=== PATIENT | female | born 1995 | race Caucasian/White ===

== ENCOUNTER 2016-03-15 11:36 | Emergency (ER) | payer MEDICAID ==
[2016-03-15] MEDS ORDERED: DIPHENHYDRAMINE HCL 50 MG CAPSULE PO ONE (11:49)
[2016-03-15] MEDS ORDERED: IBUPROFEN 600 MG TABLET PO ONE (11:49)
[2016-03-15] MEDS ORDERED: PROCHLORPERAZINE MALEATE 10 MG TABLET PO ONE (11:49)
--- NOTE | 2016-03-15 11:49 | ER Document Report ---
ED Medical Screen (RME) - General Stated Complaint: BACK PAIN,HIP PAIN,HEADACHE Time seen by provider: 11:47 Mode of Arrival: Ambulatory Information source: Patient Notes: 20-year-old female presents to ED for migraine with hips and back pain since last night. Denies any injury or fall. Last menstrual period states she's on Depo I have greeted and performed a rapid initial assessment of this patient. A comprehensive ED assessment and evaluation of the patient, analysis of test results and completion of medical decision making process will be conducted by an additional ED providers. TRAVEL OUTSIDE OF THE [place] IN LAST 30 DAYS: No - Related Data Allergies/Adverse Reactions: No Known Allergies Allergy (Verified 10/28/15 11:19) Past Medical History Pulmonary Medical History: Reports: Hx Asthma Psychiatric Medical History: Reports: Hx Depression - post Past Surgical History: Reports: Hx Section - Immunizations Hx Diphtheria, Pertussis, Tetanus Vaccination: Yes
--- NOTE | 2016-03-15 13:56 | ER Document Report ---
ED Headache - General Chief Complaint: Back Pain Stated Complaint: BACK PAIN,HIP PAIN,HEADACHE Mode of Arrival: Ambulatory Information source: Patient TRAVEL OUTSIDE OF THE [place] IN LAST 30 DAYS: No - HPI Patient complains to provider of: Headache, Other - LOW BACK PAIN Patient reports: Occasional migraines Onset: This morning Onset was: Abrupt. denies: Thunderclap Timing: Still present Quality of pain: Dull - MOSTLY, Sharp - WITH MOVEMENT OF LOWER EXTREMITIES Severity: Moderate Context: denies: CO exposure, Head injury, Insect bite, Meningitis exposure, Tick bite Associated symptoms: Photophobia, Trouble walking - DUE TO PAIN IN LOW BACK. denies: Chills, Dizzy, Fever, Motor/sensory loss to arm, Motor/sensory loss to leg, Nausea/vomiting, Neck pain Exacerbated by: Movement Similar symptoms previously: Yes Recently seen / treated by doctor: No - Related Data Allergies/Adverse Reactions: No Known Allergies Allergy (Verified 03/15/16 11:53) Past Medical History - General Information source: Patient - Social History Smoking Status: Never Smoker Chew tobacco use (# tins/day): No Frequency of alcohol use: None Drug Abuse: None Family History: Reviewed & Not Pertinent Patient has suicidal ideation: No Patient has homicidal ideation: No Pulmonary Medical History: Reports: Hx Asthma Neurological Medical History: Reports: Hx Migraine Renal/ Medical History: Denies: Hx Peritoneal Dialysis Psychiatric Medical History: Reports: Hx Depression - post Past Surgical History: Reports: Hx Section - Immunizations Hx Diphtheria, Pertussis, Tetanus Vaccination: Yes Review of Systems - Review of Systems Constitutional: No symptoms reported EENT: No symptoms reported Cardiovascular: No symptoms reported Respiratory: No symptoms reported Gastrointestinal: No symptoms reported Genitourinary: No symptoms reported. denies: Dysuria, Frequency, Hematuria, Urgency Female Genitourinary: No symptoms reported Musculoskeletal: See HPI Skin: See HPI Neurological/Psychological: Headaches Physical Exam - Vital signs Vitals: Temp Pulse Resp BP Pulse Ox 98.2 F 112 H 20 119/74 100 03/15/16 11:44 03/15/16 11:44 03/15/16 11:44 03/15/16 11:44 03/15/16 11:44 Interpretation: Tachycardic. No: Tachypneic, Febrile - General General appearance: Appears well, Alert In distress: None - HEENT Head: Normocephalic Eyes: Normal Conjunctiva: Normal Ears: Normal Nasal: Normal Mouth/Lips: Normal Mucous membranes: Dry - MILDLY Pharynx: Normal Neck: Normal, Supple - Respiratory Respiratory status: No respiratory distress Breath sounds: Normal - Cardiovascular Rhythm: Regular Heart sounds: Normal auscultation Murmur: No - Abdominal Inspection: Normal Distension: No distension - Back Back: Tender - PARASPINOUS LUMBAR, BILAT. - Extremities General upper extremity: Normal inspection General lower extremity: Normal inspection - Neurological Neuro grossly intact: Yes Cognition: Normal Orientation: AAOx4 - Psychological Associated symptoms: Normal affect, Normal mood - Skin Skin Temperature: Warm Skin Moisture: Dry Skin Color: Normal Skin Turgor: Elastic Course - Vital Signs Vital signs: Temp Pulse Resp BP Pulse Ox 98.2 F 112 H 20 119/74 100 03/15/16 11:44 03/15/16 11:44 03/15/16 11:44 03/15/16 11:44 03/15/16 11:44 Discharge - Discharge Clinical Impression: Low back pain Qualifiers: Chronicity: acute Back pain laterality: bilateral Sciatica presence: unspecified whether sciatica present Qualified Code(s): M54.5 - Low back pain Migraine headache Qualifiers: Migraine type: without aura Status migrainosus presence: without status migrainosus Intractability: not intractable Qualified Code(s): G43.009 - Migraine without aura, not intractable, without status migrainosus Condition: Stable Disposition: HOME, SELF-CARE Instructions: Low Back Pain ([facility]), Oral Narcotic Medication ([facility]), Migraine Headache ([facility]), Antinausea Medication ([facility]) Additional Instructions: REST, DRINK PLENTY OF FLUIDS. MEDS DIRECTED. AVOID PAINFUL ACTIVITY. FOLLOW UP WITH YOUR PRIMARY CARE PROVIDER OR RETURN TO E.R. IF YOU GET WORSE, ANY TIME. Prescriptions: Hydrocodone/Acetaminophen [Phillips 5-325 mg Tablet] 1 tab PO Q4HP PRN #14 tablet PRN Reason: For Pain Ondansetron [Zofran Odt 4 mg Tablet] 1 - 2 tab PO Q4H #10 tab.rapdis
[2016-03-15] MEDS ORDERED: ONDANSETRON 4 MG TAB.RAPDIS PO ONE (14:42)
[2016-03-15] MEDS ORDERED: HYDROCODONE/ACETAMINOPHEN 5-325 MG TABLET PO ONE (14:42)
[2016-03-15 15:12] VITALS: BP 111/60
== END 2016-03-15 15:10 | disposition home or self-care (01) ==
LOC: ER 11:36
DX: M54.5 Low back pain (principal); G43.909 Migraine, unspecified, not intractable, without status migrainosus; H53.149 Visual discomfort, unspecified; J45.909 Unspecified asthma, uncomplicated; R00.0 Tachycardia, unspecified
CPT/HCPCS: 99283; 72110; J3490 ×2; S0119; S0183

== ENCOUNTER 2016-03-22 20:52 | Emergency (ER) | payer MEDICAID ==
[2016-03-22] MEDS ORDERED: ACETAMINOPHEN 325 MG TABLET PO ONE (21:37)
--- NOTE | 2016-03-22 21:37 | ER Document Report ---
ED Medical Screen (RME) - General Stated Complaint: EAR PAIN Notes: Patient is a 19-year-old female presents with left ear pain for about one week. Denies any fevers, diaphoresis, chills. admits to dizzyness (+) headache, sinus pressure denies n/v, nasal drainage, cough nonproductive, sore throat I have greeted and performed a rapid initial assessment of this patient. A comprehensive ED assessment and evaluation of the patient, analysis of test results and completion of the medical decision making process will be conducted by additional ED providers. TRAVEL OUTSIDE OF THE [place] IN LAST 30 DAYS: No - Related Data Allergies/Adverse Reactions: No Known Allergies Allergy (Verified 03/15/16 11:53) Past Medical History Pulmonary Medical History: Reports: Hx Asthma Neurological Medical History: Reports: Hx Migraine Renal/ Medical History: Denies: Hx Peritoneal Dialysis Psychiatric Medical History: Reports: Hx Depression - post Past Surgical History: Reports: Hx Section - Immunizations Hx Diphtheria, Pertussis, Tetanus Vaccination: Yes Physical Exam - Vital signs Vitals: Temp Pulse Resp BP Pulse Ox 97.4 F 93 16 122/70 100 03/22/16 20:59 03/22/16 20:59 03/22/16 20:59 03/22/16 20:59 03/22/16 20:59 Course - Vital Signs Vital signs: Temp Pulse Resp BP Pulse Ox 97.4 F 93 16 122/70 100 03/22/16 20:59 03/22/16 20:59 03/22/16 20:59 03/22/16 20:59 03/22/16 20:59
[2016-03-22] MEDS ORDERED: ACETAMINOPHEN 325 MG TABLET ONE (21:39)
[2016-03-22] MEDS ORDERED: LIDOCAINE 2% URO-JET 5 ML KIT MM ONE (23:59)
--- NOTE | 2016-03-23 00:06 | ER Document Report ---
ED General - General Chief Complaint: Ear Pain Stated Complaint: EAR PAIN TRAVEL OUTSIDE OF THE [place] IN LAST 30 DAYS: No - HPI Patient complains to provider of: left ear pain Notes: Patient coming in for evaluation of left ear pain. States pain ongoing for the last week. Patient denies any fevers chills no swelling. Denies any drainage from the left ear. Patient states he has been cut cotton balls any ear for the last week. - Related Data Allergies/Adverse Reactions: amoxicillin Allergy (Verified 03/22/16 21:37) Past Medical History - Social History Smoking Status: Unknown if Ever Smoked Chew tobacco use (# tins/day): No Frequency of alcohol use: None Drug Abuse: None Family History: Reviewed & Not Pertinent Patient has suicidal ideation: No Patient has homicidal ideation: No Pulmonary Medical History: Reports: Hx Asthma Neurological Medical History: Reports: Hx Migraine Renal/ Medical History: Denies: Hx Peritoneal Dialysis Psychiatric Medical History: Reports: Hx Depression - post Past Surgical History: Reports: Hx Section - Immunizations Hx Diphtheria, Pertussis, Tetanus Vaccination: Yes Review of Systems - Review of Systems Constitutional: No symptoms reported EENT: Ear pain Cardiovascular: No symptoms reported Respiratory: No symptoms reported Gastrointestinal: No symptoms reported Genitourinary: No symptoms reported Female Genitourinary: No symptoms reported Musculoskeletal: No symptoms reported Skin: No symptoms reported Hematologic/Lymphatic: No symptoms reported Neurological/Psychological: No symptoms reported Physical Exam - Vital signs Vitals: Temp Pulse Resp BP Pulse Ox 97.4 F 93 16 122/70 100 03/22/16 20:59 03/22/16 20:59 03/22/16 20:59 03/22/16 20:59 03/22/16 20:59 Interpretation: Normal - General General appearance: Appears well, Alert - HEENT Head: Normocephalic, Atraumatic Eyes: Normal Conjunctiva: Normal Cornea: Normal Pupils: PERRL Ears: Normal External canal: Normal Tympanic membrane: Other - Cerumen impaction left ear. Right ear normal - Respiratory Respiratory status: No respiratory distress Chest status: Nontender Breath sounds: Normal Chest palpation: Normal - Cardiovascular Rhythm: Regular Heart sounds: Normal auscultation Murmur: No - Abdominal Inspection: Normal Distension: No distension Bowel sounds: Normal Tenderness: Nontender Organomegaly: No organomegaly - Back Back: Normal, Nontender - Extremities General upper extremity: Normal inspection, Nontender, Normal color, Normal ROM , Normal temperature General lower extremity: Normal inspection, Nontender, Normal color, Normal ROM , Normal temperature, Normal weight bearing. No: Garcia's sign - Neurological Neuro grossly intact: Yes Cognition: Normal Orientation: AAOx4 Brunilda Coma Scale Eye Opening: Spontaneous [place] Coma Scale Verbal: Oriented [place] Coma Scale Motor: Obeys Commands Brunilda Coma Scale Total: 15 Speech: Normal Motor strength normal: LUE, RUE, LLE, RLE Sensory: Normal - Psychological Associated symptoms: Normal affect, Normal mood - Skin Skin Temperature: Warm Skin Moisture: Dry Skin Color: Normal Course - Re-evaluation Re-evalutation: 03/23/16 00:06 Patient will be treated with your Cele hernandez Tylenol Motrin for pain the proximal to help remove the earwax. - Vital Signs Vital signs: Temp Pulse Resp BP Pulse Ox 97.4 F 93 16 122/70 100 03/22/16 20:59 03/22/16 20:59 03/22/16 20:59 03/22/16 20:59 03/22/16 20:59 Discharge - Discharge Clinical Impression: Cerumen impaction Qualifiers: Laterality: left Qualified Code(s): H61.22 - Impacted cerumen, left ear Condition: Good Disposition: HOME, SELF-CARE Instructions: Cerumen Impaction ([facility]) Additional Instructions: You may place a small amount of Urojet in your here for pain control. Also take Tylenol and Motrin for pain control. I will prescribe you Debrox eardrops that will aid in resolving the wax. You may also try to irrigate throughout after 48 hours of using the drops Prescriptions: Carbamide Peroxide [Debrox 6.5 % Otic Drops 15 ml] 10 drop OS BID #1 bottle Referrals: VALENTIN JETER MD [Primary Care Provider] - Follow up in 3-5 days
[2016-03-23 00:46] VITALS: BP 109/68
== END 2016-03-23 00:45 | disposition home or self-care (01) ==
LOC: ER 20:52
DX: H61.22 Impacted cerumen, left ear (principal); H92.02 Otalgia, left ear
CPT/HCPCS: 99282; J3490

== ENCOUNTER 2016-06-10 23:03 | Emergency (ER) | payer MEDICAID ==
[2016-06-10 23:15] VITALS: BP 135/84
--- NOTE | 2016-06-11 01:04 | ER Document Report ---
HPI - HPI Patient complains to provider of: right wrist and hand pain Onset: Just prior to arrival Onset/Duration: Sudden Quality of pain: Dull, Throbbing Severity: Moderate Pain Level: 3 Context: Patient states she punched the wall several times today Associated Symptoms: None Exacerbated by: Movement Relieved by: Remaining still Similar symptoms previously: No Recently seen / treated by doctor: No - ROS ROS below otherwise negative: Yes Systems Reviewed and Negative: Yes All other systems reviewed and negative - DERM Skin Color: Normal, [place] Skin Problems: None Past Medical History - General Information source: Patient - Social History Smoking Status: Never Smoker Cigarette use (# per day): No Chew tobacco use (# tins/day): No Frequency of alcohol use: None Drug Abuse: None Lives with: Spouse/Significant other Family History: Reviewed & Not Pertinent Patient has suicidal ideation: No Patient has homicidal ideation: No - Medical History Medical History: Negative Pulmonary Medical History: Reports: Hx Asthma Neurological Medical History: Reports: Hx Migraine Renal/ Medical History: Denies: Hx Peritoneal Dialysis Psychiatric Medical History: Reports: Hx Depression - post Past Surgical History: Reports: Hx Section - Immunizations Hx Diphtheria, Pertussis, Tetanus Vaccination: Yes Vertical Provider Document - CONSTITUTIONAL Agree With Documented VS: Yes Exam Limitations: No Limitations General Appearance: WD/WN - INFECTION CONTROL TRAVEL OUTSIDE OF THE [place] IN LAST 30 DAYS: No - HEENT HEENT: Atraumatic - NECK Neck: Normal Inspection - RESPIRATORY O2 Sat by Pulse Oximetry: 100 - MUSCULOSKELETAL/EXTREMETIES Notes: Right hand: Patient has tenderness over the MCP joints #2, through 5. The patient does have tenderness over the distal radius and ulnar. Still Refill is good. Distal sensation is good Course - Vital Signs Vital signs: Temp Pulse Resp BP Pulse Ox 98.6 F 92 17 135/84 H 100 06/10/16 23:13 06/10/16 23:13 06/10/16 23:13 06/10/16 23:13 06/10/16 23:13 - Diagnostic Test Radiology reviewed: Image reviewed, Reports reviewed - Excise of the wrist and hand show no obvious fractures. Patient placed in splint Procedures - Immobilization Right Hand Time completed: 02:00 Pre-Proc Neuro Vasc Exam: Normal Immobilizer type: Other - Volar splint Performed by: PCT Post-Proc Neuro Vasc Exam: Normal Alignment checked and good: Yes Discharge - Discharge Clinical Impression: right hand contusion, right wrist contusion Condition: Stable Disposition: HOME, SELF-CARE Additional Instructions: While the x-rays do not show an obvious fracture, hairline fractures are sometimes mask. Given the tenderness in the wrist itself and over the metacarpal phalangeal joints, the hand and wrist was placed in a half-cast. This is a splint to allow the joint and bones to rest and heal. Take ibuprofen as needed for pain Elevate wrist, ice several times a day. Follow-up with the bone doctor in 2 weeks: I left the number for Dr. Verduzco. Keep the hand in the splint for the next week. Take it the splint off after week and began range of motion of the hand and wrist. Take Percocet if needed: The pain medicine you're taking prescribed as a narcotic. There are several important things you should know about this medicine: 1. This medicine contains Tylenol: It is important that you do not take Tylenol (or acetaminophen) while on this medicine. Tylenol is metabolized by the liver and taking too much Tylenol (acetaminophen) can lay to liver damage and even liver failure. 2. Taking narcotics for too long can lead to physical and mental dependence. Take this medicine only if really needed and in the lowest quantity to achieve pain relief. 3. Do not drink alcohol while on this medicine. Alcohol interacts with narcotics and the combination can be dangerous. 4. Do not drive or operate machinery while on this medicine. 5. Narcotics do cause constipation, so drink plenty of fluids and daily stool softeners. Prescriptions: Oxycodone HCl/Acetaminophen [Percocet 5-325 mg Tablet] 1 tab PO ASDIR PRN #15 tab PRN Reason: Referrals: MICHEAL VERDUZCO MD [ACTIVE STAFF] - Follow up tomorrow (Call for appointment in 2 weeks)
[2016-06-11] MEDS ORDERED: HYDROCODONE/ACETAMINOPHEN 5-325 MG 6 TAB/DSPK PO PRN (02:25)
== END 2016-06-11 02:25 | disposition home or self-care (01) ==
LOC: ER 23:03
PROC: 2W3CX1Z Immobilization of Right Lower Arm using Splint (ICD-10-PCS; principal; 2016-06-10)
DX: S60.221A Contusion of right hand, initial encounter (principal); S60.211A Contusion of right wrist, initial encounter; M25.531 Pain in right wrist; M79.641 Pain in right hand; W22.01XA Walked into wall, initial encounter
CPT/HCPCS: 99283

== ENCOUNTER 2016-12-10 17:23 | Emergency (ER) | payer MEDICAID ==
[2016-12-10] MEDS ORDERED: DIAZEPAM 2 MG TABLET PO ONE (18:35)
[2016-12-10] MEDS ORDERED: KETOROLAC TROMETHAMINE INJ/PF 30 MG/1 ML SDV IM ONE (18:35)
--- NOTE | 2016-12-10 18:38 | ER Document Report ---
HPI - HPI Pain Level: 3 Past Medical History - Social History Smoking Status: Current Every Day Smoker Family History: Reviewed & Not Pertinent Pulmonary Medical History: Reports: Hx Asthma Neurological Medical History: Reports: Hx Migraine Renal/ Medical History: Denies: Hx Peritoneal Dialysis Psychiatric Medical History: Reports: Hx Depression - post Past Surgical History: Reports: Hx Section - Immunizations Hx Diphtheria, Pertussis, Tetanus Vaccination: Yes Vertical Provider Document - INFECTION CONTROL TRAVEL OUTSIDE OF THE [place] IN LAST 30 DAYS: No - RESPIRATORY O2 Sat by Pulse Oximetry: 100 Course - Re-evaluation Re-evalutation: 12/10/16 18:36 The patient presents with low back pain without signs of spinal cord compression , cauda equina syndrome, infection, aneurysm, or other serious etiology. Her symptoms are consistent with a muscle strain given her line of work and physical exam findings. the patient is neurologically intact. Given the extremely low risk of these diagnoses further testing and evaluation for these possibilities does not appear to be indicated at this time. The patient has been instructed to return if the symptoms worsen or change in any way. - Vital Signs Vital signs: Temp Pulse Resp BP Pulse Ox 98.4 F 69 121/71 100 12/10/16 17:36 12/10/16 17:36 12/10/16 17:36 12/10/16 17:36 Discharge - Discharge Clinical Impression: Back pain Qualifiers: Back pain location: low back pain Chronicity: chronic Back pain laterality: bilateral Sciatica presence: with sciatica Sciatica laterality: bilateral sciatica Qualified Code(s): M54.42 - Lumbago with sciatica, left side Condition: Good Disposition: HOME, SELF-CARE Additional Instructions: LOW BACK PAIN: Three out of every four people will have an episode of disabling back pain during their lifetime. Most commonly the pain is due to straining of the muscles and ligaments in the low back. Usual treatment includes: (1) Rest on a firm surface. Avoid lying on your stomach. (2) Ice pack the painful area. After a few days, gentle heat may be used intermittently to relax the area, or ice packs can be continued. (3) Medication may be needed -- muscle relaxers and antiinflammatory medicines are commonly used. (4) As the back improves, exercises are prescribed to strengthen the back and abdominal muscles. Your doctor will advise you on the proper care for your back at each stage in your recovery. You may be better in a few days -- or healing may take several weeks. If new symptoms of a "herniated disc" (radiation of pain, numbness, or tingling down the back of the leg or weakness in the leg) occur, you should be re-examined. Further testing may be necessary. PAIN MEDICATION INJECTION: You have received an injection of a pain medication. You should experience significant pain relief within 45 minutes. If this injection was a narcotic -- it will impair your judgement, slow your reaction time and make you sleepy (as well as relieve your pain). Narcotics also can cause nausea. You should not drive, work with machinery, or perform any task requiring mental alertness until all effects of the medication are gone -- six to eight hours. Do not take any alcohol, or sedatives, and do not take any other medication without checking with your physician. ICE PACKS: Apply ice packs frequently against the painful area. Many different schedules are recommended, such as "20 minutes on, 20 minutes off" or "one hour ice, two hours rest." If you need to work, you may need to go longer between ice treatments. You should plan to have the area ice packed AT LEAST one fourth of the time. The ice should be applied over the wrap, tape, or splint, or over a layer of cloth -- not directly against the skin. Some ice bags have a built-in cloth and can be put directly on the skin. WARM PACKS: After approximately two days, apply gentle heat (such as a heating pad or hot water bottle) for about 20 to 30 minutes about every two hours -- at least four times daily. Warmth and elevation will help you make a more rapid recovery , and will ease the pain considerably. Do not use HOT heat, and never apply heat for longer than 30 minutes. The continuous heat can invisibly damage skin and muscles -- even when no burn is seen on the surface. Damaged muscles can make you MORE sore. FOLLOW-UP CARE: If you have been referred to a physician for follow-up care, call the physician s office for an appointment as you were instructed or within the next two days. If you experience worsening or a significant change in your symptoms, notify the physician immediately or return to the Emergency Department at any time for re-evaluation. Prescriptions: Cyclobenzaprine HCl [Flexeril 10 mg Tablet] 10 mg PO TIDP PRN #15 tab PRN Reason: Naproxen 500 mg PO BID #20 tablet Forms: Special Work Note, Return to Work Referrals: [facility] [Provider Group] - Follow up in 1 week
[2016-12-10 19:23] VITALS: BP 134/71
== END 2016-12-10 19:23 | disposition home or self-care (01) ==
LOC: ER 17:23
DX: G89.29 Other chronic pain (principal); M54.41 Lumbago with sciatica, right side; M54.42 Lumbago with sciatica, left side; J45.909 Unspecified asthma, uncomplicated; F17.200 Nicotine dependence, unspecified, uncomplicated
CPT/HCPCS: 99283; 96372; J3490; J1885

== ENCOUNTER 2017-02-12 21:58 | Emergency (ER) | payer MEDICAID ==
--- NOTE | 2017-02-12 22:38 | ER Document Report ---
ED General - General Chief Complaint: Abdominal Pain Stated Complaint: ABDOMINAL PAIN Time Seen by Provider: 02/12/17 22:30 Notes: Patient is a 19-year-old female presents with complaint of lower pelvic abdominal pain rating to her back and cramping. Last menstrual period was January 08. She is sexually active January 26. She did take a test yesterday which was positive. No vaginal bleeding. No abnormal discharge. No fevers. No vomiting. No other complaints at this time. TRAVEL OUTSIDE OF THE [place] IN LAST 30 DAYS: No - Related Data Allergies/Adverse Reactions: No Known Allergies Allergy (Unverified 12/10/16 19:06) Past Medical History - Social History Smoking Status: Current Some Day Smoker Frequency of alcohol use: None Drug Abuse: None Family History: Reviewed & Not Pertinent Patient has suicidal ideation: No Patient has homicidal ideation: No Pulmonary Medical History: Reports: Hx Asthma Neurological Medical History: Reports: Hx Migraine Renal/ Medical History: Denies: Hx Peritoneal Dialysis Psychiatric Medical History: Reports: Hx Depression - post Past Surgical History: Reports: Hx Section - Immunizations Hx Diphtheria, Pertussis, Tetanus Vaccination: Yes Review of Systems - Review of Systems Notes: My Normal Review Basic REVIEW OF SYSTEMS: CONSTITUTIONAL : Denies fever, chills, or sweats. Denies recent illness. EENT: Denies eye, ear, throat, or mouth pain or symptoms. Denies nasal or sinus congestion. RESPIRATORY: Denies cough, cold, or chest congestion. Denies shortness of breath, difficulty breathing, or wheezing. GASTROINTESTINAL: Has lower abdominal pain. Denies nausea, vomiting, or diarrhea. GENITOURINARY: Denies difficulty urinating, painful urination, burning, frequency, or blood in urine. FEMALE GENITOURINARY: No abnormal vaginal discharge or bleeding. Currently . MUSCULOSKELETAL: Denies neck or back pain or joint pain or swelling. SKIN: Denies rash or skin lesions. NEUROLOGICAL: Denies altered mental status or loss of consciousness. Denies headache. Denies weakness or paralysis or loss of use of either side. Denies problems with gait or speech. Denies sensory or motor loss. ALL OTHER SYSTEMS REVIEWED AND NEGATIVE. Physical Exam - Vital signs Vitals: Temp Pulse Resp BP Pulse Ox 98.9 F 102 H 21 H 137/83 H 100 02/12/17 22:21 02/12/17 22:21 02/12/17 22:21 02/12/17 22:21 02/12/17 22:21 - Notes Notes: General Appearance: Well nourished, alert, cooperative, no acute distress, mild to moderateobvious discomfort. Vitals: reviewed, See vital signs table. Eyes: PERRL, EOMI, Conjuctiva clear Mouth: No decreasd moisture Lungs: No wheezing, No rales, No rhonci, No accessory muscle use, good air exchange bilaterally. Heart: Normal rate, Regular rythm, No murmur, no rub Abdomen: Normal BS, soft, No rigidity, moderate abdominal tenderness to palpation mainly over this lower abdomen., No guarding, no rebound, Pelvic: Normal external genitalia. No abnormal discharge in vaginal vault. No blood. No obvious pain during exam. Extremities: strength 5/5 in all extremities, good pulses in all extremities, no swelling or tenderness in the extremities, no edema. Skin: warm, dry, appropriate color, no rash Neuro: speech clear, oriented x 3, normal affect, responds appropriately to questions. Course - Re-evaluation Re-evalutation: 02/13/17 01:07 Patient's ultrasound does not show an IUP but does not show an ectopic either. No free fluid. Her hCG level is only in the 300s and therefore it is not surprising that we do not see anything on ultrasound. She has no bleeding on exam. She her abdomen is soft and tender to palpation. Tylenol did help her pain. I did inform her that we cannot yet see intrauterine but we cannot fully rule out ectopic until we are able to see on ultrasound. Informed her that she should return to ER or her dynamics ax developer approximately 5 days for reevaluation. Informed her of the UTI will place on Macrobid. I encouraged her return to ER immediately if she has fevers, worsening abdominal pain, vomiting, vaginal bleeding, or she feels unwell. Patient agrees with plan and will be discharged home. Dictation of this chart was performed using voice recognition software; therefore, there may be some unintended grammatical errors. - Vital Signs Vital signs: Temp Pulse Resp BP Pulse Ox 98.9 F 102 H 21 H 137/83 H 100 02/12/17 22:21 02/12/17 22:21 02/12/17 22:21 02/12/17 22:21 02/12/17 22:21 - Laboratory Laboratory results interpreted by me: 02/12/17 02/12/17 22:43 22:54 Beta HCG, Quant 375.69 H Urine Ketones TRACE H Urine Urobilinogen 2.0 H Ur Leukocyte Esterase MODERATE H Discharge - Discharge Clinical Impression: Abdominal pain Qualifiers: Abdominal location: lower abdomen, unspecified Qualified Code(s): R10.30 - Lower abdominal pain, unspecified Qualifiers: Weeks of gestation: less than 8 weeks Qualified Code(s): Z3A.01 - Less than 8 weeks gestation of UTI (urinary tract infection) Qualifiers: Urinary tract infection type: acute cystitis Hematuria presence: without hematuria Qualified Code(s): N30.00 - Acute cystitis without hematuria Condition: Good Disposition: HOME, SELF-CARE Additional Instructions: Your appears to be too early to see it on ultrasound. If you are still having pain after 5 days you need to return to the ER for reevaluation and for repeat blood work to make sure your hormone is rising appropriately. As discussed with you it is too early to tell if you have an intrauterine or an ectopic . At this time we do not expect an ectopic , but you still need to have a low threshold to return to the ER immediately if you have severe pain, vomiting, vaginal bleeding, fevers, or feel unwell. Please take Tylenol for pain. please start taking vitamins and make an appointment to see the OB physician within a week. Your urinalysis shows evidence of a UTI. We have placed you on an antibiotic for this. Prescriptions: Nitrofurantoin/Nitrofuran Mac [Macrobid 100 mg Capsule] 1 tab PO BID #14 capsule Referrals: JESSICA NORMAN MD [ACTIVE STAFF] - Follow up in 3-5 days
[2017-02-12 23:08] LABS: APPEARANCE,URINE SLIGHTLY-CLOUDY; BILIRUBIN,URINE NEGATIVE (NEGATIVE); COLOR,URINE YELLOW; GLUCOSE, URINE NEGATIVE (NEGATIVE); KETONES,URINE TRACE mg/dL (NEGATIVE); LEUKOCYTE ESTERASE,URINE MODERATE (NEGATIVE); NITRITE,URINE NEGATIVE (NEGATIVE); PROTEIN,URINE NEGATIVE (NEGATIVE); URINE SPECIFIC GRAVITY 1.027
--- NOTE | 2017-02-13 00:06 | RADIOLOGY REPORT (SQ) ---
EXAM DESCRIPTION: U/S OB TRANSVAG W/DOPPLER COMPLETED DATE/TIME: 02/12/2017 11:49 pm REASON FOR STUDY: pelvic pain in early COMPARISON: None. TECHNIQUE: Dynamic and static grayscale images acquired of the pelvis via transvaginal approach and recorded on PACS. Additional selected color Doppler and spectral images recorded. LIMITATIONS: None. FINDINGS: UTERUS: Contour normal. No mass. ENDOMETRIAL STRIPE: No intrauterine identified at this time. No focal or generalized thicke augustus. No masses. CERVIX: No nabothian cysts. RIGHT OVARY: No abnormal masses. RIGHT OVARY DOPPLER: Normal arterial vascular flow without evidence for torsion. LEFT OVARY: 2.1 cm involuting left ovarian luteal cyst. LEFT OVARY DOPPLER: Normal arterial vascular flow without evidence for torsion. FREE FLUID: None noted. OTHER: No other significant finding. MEASUREMENTS: UTERUS: 8 x 5.4 x 4 cm ENDOMETRIAL STRIPE: 16 mm RIGHT OVARY: 2.9 x 1.6 x 1.4 cm LEFT OVARY: 3.2 x 3.2 x 1.8 cm IMPRESSION: No intrauterine identified at this time. 2.1 cm involuting left ovarian lutea l cyst. No free fluid. TECHNICAL DOCUMENTATION: JOB ID: [id number] [place]-72 2010 [employer]- All Rights Reserved
[2017-02-13 00:38] LABS: T.VAGINALIS (WET MOUNT) NO TRICHOMONAS SEEN; WBCS (WET MOUNT) RARE WBCS SEEN; YEAST (WET MOUNT) NO YEAST SEEN
[2017-02-13] MEDS ORDERED: NITROFURANTOIN MONOHYD/M-CRYST 100 MG CAPSULE PO ONE (01:02)
[2017-02-13 01:46] VITALS: BP 133/80
[2017-02-13 01:55] LABS: CHLAM PCR NOT DETECTED (NOT DETECT); GON PCR NOT DETECTED (NOT DETECT)
== END 2017-02-13 01:17 | disposition home or self-care (01) ==
LOC: ER 21:58
DX: O23.11 Infections of bladder in pregnancy, first trimester (principal); O26.891 Other specified pregnancy related conditions, first trimester; R10.2 Pelvic and perineal pain; O99.511 Diseases of the respiratory system complicating pregnancy, first trimester; J45.909 Unspecified asthma, uncomplicated; O99.331 Smoking (tobacco) complicating pregnancy, first trimester; Z3A.01 Less than 8 weeks gestation of pregnancy
CPT/HCPCS: 99284; 36415; 87210; 84702; 81001; 87491; 87591; 76817; 93976; J3490; J8499

== ENCOUNTER 2017-02-21 22:12 | Emergency (ER) | payer MEDICAID ==
--- NOTE | 2017-02-21 22:36 | ER Document Report ---
ED Medical Screen (RME) - General Chief Complaint: Abdominal Cramping Stated Complaint: FALL/STOMACH PAIN Time Seen by Provider: 02/21/17 22:33 Mode of Arrival: Ambulatory Information source: Patient Notes: 21-year-old 3 P1 female fell on black ice today at 330 falling on her stomach. She is 6 weeks and she is having upper and lower abdominal pain since it occurred. No vaginal bleeding, but she wants to make sure everything is okay with this . TRAVEL OUTSIDE OF THE [place] IN LAST 30 DAYS: No - Related Data Allergies/Adverse Reactions: No Known Allergies Allergy (Verified 02/21/17 22:22) Past Medical History Pulmonary Medical History: Reports: Hx Asthma Neurological Medical History: Reports: Hx Migraine Renal/ Medical History: Denies: Hx Peritoneal Dialysis Psychiatric Medical History: Reports: Hx Depression - post Past Surgical History: Reports: Hx Section - Immunizations Hx Diphtheria, Pertussis, Tetanus Vaccination: Yes History of Influenza Vaccine for 11/2016 - 04/2017 Season: No Physical Exam - Vital signs Vitals: Temp Pulse Resp BP Pulse Ox 98.6 F 92 18 140/84 H 99 02/21/17 22:29 02/21/17 22:29 02/21/17 22:29 02/21/17 22:29 02/21/17 22:29 Course - Vital Signs Vital signs: Temp Pulse Resp BP Pulse Ox 98.6 F 92 18 140/84 H 99 02/21/17 22:29 02/21/17 22:29 02/21/17 22:29 02/21/17 22:29 02/21/17 22:29
[2017-02-21 23:15] LABS: APPEARANCE,URINE SLIGHTLY HAZY; BILIRUBIN,URINE NEGATIVE (NEGATIVE); COLOR,URINE STRAW; GLUCOSE, URINE NEGATIVE (NEGATIVE); KETONES,URINE TRACE mg/dL (NEGATIVE); LEUKOCYTE ESTERASE,URINE LARGE (NEGATIVE); NITRITE,URINE NEGATIVE (NEGATIVE); PROTEIN,URINE NEGATIVE (NEGATIVE); URINE SPECIFIC GRAVITY 1.006; UROBILINOGEN,URINE NEGATIVE mg/dL (<2.0)
--- NOTE | 2017-02-22 00:23 | ER Document Report ---
ED General - General Chief Complaint: Abdominal Cramping Stated Complaint: FALL/STOMACH PAIN Time Seen by Provider: 02/21/17 22:33 Mode of Arrival: Ambulatory Notes: Patient is a 21 year old female who presents after she slipped on ice and fell onto her abdomen. She is currently 6 weeks by LMP. She notes that since that time she has had a small amount of abdominal cramping and wants to make sure that the baby is fine. She describes the pain in the lower abdomen as being a mild, cramping, intermittent pain. Nothing improves or worsens that pain. She denies any trauma to any other area of her body or any additional concerns today. TRAVEL OUTSIDE OF THE [place] IN LAST 30 DAYS: No - Related Data Allergies/Adverse Reactions: No Known Allergies Allergy (Verified 02/21/17 22:22) Past Medical History - General Information source: Patient - Social History Smoking Status: Former Smoker Frequency of alcohol use: None Drug Abuse: None Lives with: Spouse/Significant other Family History: Reviewed & Not Pertinent Patient has suicidal ideation: No Patient has homicidal ideation: No Pulmonary Medical History: Reports: Hx Asthma Neurological Medical History: Reports: Hx Migraine Renal/ Medical History: Denies: Hx Peritoneal Dialysis Psychiatric Medical History: Reports: Hx Depression - post Past Surgical History: Reports: Hx Section, Hx Oral Surgery - [place] teeth - Immunizations Hx Diphtheria, Pertussis, Tetanus Vaccination: Yes Review of Systems - Review of Systems Notes: Constitutional: Negative for fever. HENT: Negative for sore throat. Eyes: Negative for visual changes. Cardiovascular: Negative for chest pain. Respiratory: Negative for shortness of breath. Gastrointestinal: Positive for abdominal pain Genitourinary: Negative for dysuria. Musculoskeletal: Negative for back pain. Skin: Negative for rash. Neurological: Negative for headaches, weakness or numbness. 10 point ROS negative except as marked above and in HPI. Physical Exam - Vital signs Vitals: Temp Pulse Resp BP Pulse Ox 98.6 F 92 18 140/84 H 99 02/21/17 22:29 02/21/17 22:29 02/21/17 22:29 02/21/17 22:29 02/21/17 22:29 Interpretation: Normal Notes: PHYSICAL EXAMINATION: GENERAL: Well-appearing, well-nourished and in no acute distress. HEAD: Atraumatic, normocephalic. EYES: Pupils equal round and reactive to light, extraocular movements intact, sclera anicteric, conjunctiva are normal. ENT: nares patent, oropharynx clear without exudates. Moist mucous membranes. NECK: Normal range of motion, supple without lymphadenopathy LUNGS: Breath sounds clear to auscultation bilaterally and equal. No wheezes rales or rhonchi. HEART: Regular rate and rhythm without murmurs ABDOMEN: Soft, nontender, normoactive bowel sounds. No guarding, no rebound. No masses appreciated. EXTREMITIES: Normal range of motion, no pitting or edema. No cyanosis. NEUROLOGICAL: No focal neurological deficits. Moves all extremities spontaneously and on command. PSYCH: Normal mood, normal affect. SKIN: Warm, Dry, normal turgor, no rashes or lesions noted. Course - Re-evaluation Re-evalutation: 02/22/17 00:21 Patient presents with some mild lower abdominal cramping after she slipped on the ice and fell her abdomen while currently 6 weeks . No vaginal bleeding or discharge. No bruising on abdominal examination. No tenderness to palpation. Patient is very early in her and I have informed her that we will likely still be unable to see any significant findings on her ultrasound given her early gestation and that there is nothing we could do either way if she were to have cause any kind of injury to the fetus today. Given that patient does not have any bleeding no indication for RhoGam studies. At this time will discharge with return precautions and follow-up recommendations. Verbal discharge instructions given a the bedside and opportunity for questions given. Medication warnings reviewed. Patient is in agreement with this plan and has verbalized understanding of return precautions and the need for primary care follow-up in the next 24-72 hours. - Vital Signs Vital signs: Temp Pulse Resp BP Pulse Ox 98.6 F 92 18 135/75 H 99 02/21/17 22:29 02/21/17 22:29 02/21/17 22:29 02/21/17 23:23 02/21/17 22:29 - Laboratory Laboratory results interpreted by me: 02/21/17 02/21/17 22:50 22:50 Beta HCG, Quant 07761.00 H Urine Ketones TRACE H Ur Leukocyte Esterase LARGE H Discharge - Discharge Clinical Impression: First trimester Abdominal trauma Qualifiers: Encounter type: initial encounter Qualified Code(s): S39.91XA - Unspecified injury of abdomen, initial encounter Condition: Stable Disposition: HOME, SELF-CARE Additional Instructions: The ultrasound shows a very early present inside your uterus. Your labs are otherwise unremarkable. Please follow-up with your OB. Return for any additional concerns Referrals: LIZZ TURNER FNP-C [Primary Care Provider] - Follow up as needed
--- NOTE | 2017-02-22 02:08 | RADIOLOGY REPORT (SQ) ---
EXAM DESCRIPTION: U/S OB TRANSVAGINAL W/O DOP CLINICAL HISTORY: 21 years, Female, low abd pain since fell on stomach, 6 week pregnan COMPARISON: 02.12.17 LIMITATIONS: None. FINDINGS: Intrauterine gestational sac with yolk sac; mean sac diameter is 1.3 cm corresponding with a gestational age of six weeks and one day. No pole, no cardiac activity. 3.3 cm left ovary is unremarkable. Right ovary is not visualized. No significant free fluid. IMPRESSION: Intrauterine gestational sac measures 6w1d. No pole at this time. No evidence of complication. 2011 [employer]- All Rights Reserved
[2017-02-22 02:23] VITALS: BP 138/77
== END 2017-02-22 02:17 | disposition home or self-care (01) ==
LOC: ER 22:12
DX: O9A.211 Injury, poisoning and certain other consequences of external causes complicating pregnancy, first trimester (principal); S39.91XA Unspecified injury of abdomen, initial encounter; W01.0XXA Fall on same level from slipping, tripping and stumbling without subsequent striking against object, initial encounter; Z3A.01 Less than 8 weeks gestation of pregnancy; Z87.891 Personal history of nicotine dependence
CPT/HCPCS: 36415; 76817; 81001; 84702; 99284

== ENCOUNTER 2017-03-06 16:24 | Emergency (ER) | payer MEDICAID ==
--- NOTE | 2017-03-06 18:56 | ER Document Report ---
ED Burn/Smoke/Toxic Fumes - General Chief Complaint: Hand Burn Stated Complaint: BURN TO HAND Time Seen by Provider: 03/06/17 18:52 Notes: Patient states that she bumped a hot coffee pot and burn to her third fourth and fifth knuckle on her left hand. No other injuries. Patient is so was not sure if she could take anything for the pain but now the pain is gone. No blistering. No other injuries. Patient requesting a work note TRAVEL OUTSIDE OF THE [place] IN LAST 30 DAYS: No - HPI Patient complains to provider of: Burn Onset: Just prior to arrival Where: Home Quality of pain: Burning Severity: Mild Pain Level: 0 Context: Hot liquid Exposure to: No: Carbon monoxide Associated Symptoms: None Other injuries: None - Related Data Allergies/Adverse Reactions: No Known Allergies Allergy (Verified 03/06/17 18:27) Past Medical History - General Information source: Patient - Social History Smoking Status: Never Smoker Frequency of alcohol use: None Drug Abuse: None Lives with: Family Family History: Reviewed & Not Pertinent Patient has suicidal ideation: No Patient has homicidal ideation: No Pulmonary Medical History: Reports: Hx Asthma Neurological Medical History: Reports: Hx Migraine Renal/ Medical History: Denies: Hx Peritoneal Dialysis Psychiatric Medical History: Reports: Hx Depression - post Past Surgical History: Reports: Hx Section, Hx Oral Surgery - [place] teeth - Immunizations Hx Diphtheria, Pertussis, Tetanus Vaccination: Yes Review of Systems - Review of Systems Constitutional: No symptoms reported Cardiovascular: No symptoms reported. denies: Chest pain, Palpitations, Heart racing Respiratory: No symptoms reported. denies: Cough, Hurts to breathe, Wheezing Musculoskeletal: No symptoms reported. denies: Joint swelling, Muscle pain, Muscle stiffness Skin: See HPI, Other - Burn to left hand Physical Exam - Vital signs Vitals: Temp Pulse Resp BP Pulse Ox 98.7 F 78 18 115/63 100 03/06/17 17:22 03/06/17 17:22 03/06/17 17:22 03/06/17 17:22 03/06/17 17:22 Interpretation: Normal - General General appearance: Appears well, Alert - Respiratory Respiratory status: No respiratory distress Chest status: Nontender Breath sounds: Normal Chest palpation: Normal - Cardiovascular Rhythm: Regular Heart sounds: Normal auscultation Murmur: No - Skin Skin Temperature: Warm Skin Moisture: Dry Skin Color: Normal, Other - There is a small red round burn. First-degree. On the fourth and fifth knuckle of the left hand. No blisters. Not circumferential. Skin sloughing. Course - Re-evaluation Re-evalutation: 03/06/17 18:54 Mild thermal injury to the left dorsal hand. Not circumferential. Does not require any thing further. Instructions given regarding treatment with antibiotic ointment if needed. Will DC at this time. - Vital Signs Vital signs: Temp Pulse Resp BP Pulse Ox 98.7 F 78 18 115/63 100 03/06/17 17:22 03/06/17 17:22 03/06/17 17:22 03/06/17 17:22 03/06/17 17:22 Discharge - Discharge Clinical Impression: Burn, hand, first degree Qualifiers: Encounter type: initial encounter Burn of hand location: multiple fingers excluding thumb Laterality: left Qualified Code(s): T23.132A - Burn of first degree of multiple left fingers (nail), not including thumb, initial encounter Disposition: HOME, SELF-CARE Instructions: [facility] ([facility]) Additional Instructions: Use antibiotic ointment such as bacitracin if the skin integrity is compromised such as if a blister sloughed off. Keep clean for the next 2 days. This may require you to be off work. Return for any worsening symptoms or concerns or if the redness gets worse or there is any signs of infection. Forms: Return to School
[2017-03-06 19:31] VITALS: BP 120/63
== END 2017-03-06 19:32 | disposition home or self-care (01) ==
LOC: ER 16:24
DX: T23.132A Burn of first degree of multiple left fingers (nail), not including thumb, initial encounter (principal); X08.8XXA Exposure to other specified smoke, fire and flames, initial encounter
CPT/HCPCS: 99283

== ENCOUNTER 2017-04-13 20:28 | Emergency (ER) | payer MEDICAID ==
[2017-04-13] MEDS ORDERED: ACETAMINOPHEN 325 MG TABLET PO ONE (21:38)
[2017-04-13] MEDS ORDERED: ONDANSETRON 4 MG TAB.RAPDIS PO ONE (21:38)
--- NOTE | 2017-04-13 21:39 | ER Document Report ---
ED GI/ - General Chief Complaint: abdominal cramping with Stated Complaint: CRAMPING Time Seen by Provider: 04/13/17 21:33 Notes: Patient is a 21-year-old female that comes emergency department for chief complaint of lower abdominal cramping that started tonight. She is at about 13 weeks gestation by last menstrual period. She denies trauma, vaginal discharge, bleeding, dysuria, fever or chills. She reports mild nausea and mild pain radiating around to her back. She denies any daily medications, has had a . She is on vitamins, has been seen by the health department, pending [facility] follow-up. TRAVEL OUTSIDE OF THE [place] IN LAST 30 DAYS: No - Related Data Allergies/Adverse Reactions: No Known Allergies Allergy (Verified 03/06/17 18:27) Past Medical History - General Information source: Patient - Social History Smoking Status: Never Smoker Frequency of alcohol use: None Drug Abuse: None Lives with: Family Family History: Reviewed & Not Pertinent Pulmonary Medical History: Reports: Hx Asthma Neurological Medical History: Reports: Hx Migraine Renal/ Medical History: Denies: Hx Peritoneal Dialysis Psychiatric Medical History: Reports: Hx Depression - post Past Surgical History: Reports: Hx Section, Hx Oral Surgery - [place] teeth - Immunizations Hx Diphtheria, Pertussis, Tetanus Vaccination: Yes Review of Systems - Review of Systems Constitutional: No symptoms reported EENT: No symptoms reported Cardiovascular: No symptoms reported Respiratory: No symptoms reported Gastrointestinal: See HPI Genitourinary: See HPI Female Genitourinary: See HPI Musculoskeletal: No symptoms reported Skin: No symptoms reported Hematologic/Lymphatic: No symptoms reported Neurological/Psychological: No symptoms reported Physical Exam - Vital signs Vitals: Temp Pulse BP Pulse Ox 98.5 F 86 150/83 H 98 04/13/17 21:01 04/13/17 21:01 04/13/17 21:01 04/13/17 21:01 Interpretation: Normal - General General appearance: Appears well In distress: None - HEENT Head: Normocephalic, Atraumatic Eyes: Normal Pupils: PERRL - Respiratory Respiratory status: No respiratory distress Chest status: Nontender Breath sounds: Normal. No: Decreased air movement, Wheezing Chest palpation: Normal - Cardiovascular Rhythm: Regular. No: Tachycardia Heart sounds: Normal auscultation, S1 appreciated, S2 appreciated Murmur: No - Abdominal Inspection: Normal Distension: No distension Bowel sounds: Normal Tenderness: Nontender. No: Tender, McBurney's point, Cordero's sign, Guarding - Back Back: Normal, Nontender - Extremities General upper extremity: Normal inspection, Nontender, Normal color, Normal ROM , Normal temperature General lower extremity: Normal inspection, Nontender, Normal color, Normal ROM , Normal temperature, Normal weight bearing. No: Garcia's sign - Neurological Neuro grossly intact: Yes Cognition: Normal Orientation: AAOx4 Brunilda Coma Scale Eye Opening: Spontaneous Brunilda Coma Scale Verbal: Oriented Brunilda Coma Scale Motor: Obeys Commands Brunilda Coma Scale Total: 15 Speech: Normal Motor strength normal: LUE, RUE, LLE, RLE Sensory: Normal - Psychological Associated symptoms: Normal affect, Normal mood - Skin Skin Temperature: Warm Skin Moisture: Dry Skin Color: Normal Course - Re-evaluation Re-evalutation: Patient initially reporting some cramping and nausea, after Tylenol and Zofran this resolved. She is well-appearing, her abdomen is soft, no CVA tenderness, unremarkable vital signs with borderline elevated blood pressure. CBC shows mild leukocytosis, hCG appropriately elevated, urine does have some squamous epithelials but overall indicates infection especially with reported lower abdominal cramps. Ultrasound is normal. No bleeding, discharge, or other abnormality reported. On reexamination patient asymptomatic, asking to leave. Low suspicion of appendicitis, acute abdomen, even PID. Provided with Keflex antibiotic, Zofran upon request for intermittent nausea secondary to , patient already has follow-up established. Discussed follow-up, provided with copy of ultrasound, discussed return precautions, patient states understanding and agreement. - Vital Signs Vital signs: Temp Pulse Resp BP Pulse Ox 98.5 F 81 18 134/67 H 99 04/13/17 21:01 04/14/17 01:00 04/14/17 01:00 04/14/17 01:00 04/14/17 01:00 - Laboratory Result Diagrams: 04/13/17 21:40 Laboratory results interpreted by me: 04/13/17 04/13/17 04/13/17 21:40 21:40 21:50 WBC 12.7 H Absolute Neutrophils 8.9 H Beta HCG, Quant [id number] H Urine Urobilinogen 2.0 H Ur Leukocyte Esterase LARGE H Discharge - Discharge Clinical Impression: Nausea Abdominal pain Qualifiers: Abdominal location: lower abdomen, unspecified Qualified Code(s): R10.30 - Lower abdominal pain, unspecified Condition: Stable Disposition: HOME, SELF-CARE Additional Instructions: Ultrasound shows normal living in the uterus, workup indicates urinary tract infection but no other obvious abnormalities are identified on your evaluation. Take Keflex and Mobic as prescribed, take Zofran if needed for intermittent nausea, drink plenty of fluids. Follow-up with [facility]. Return if you worsen including vomiting, temperature of 100.4 or greater, severe pain, bleeding, or any other concerning symptoms. Prescriptions: Cephalexin Monohydrate [Keflex 500 mg Capsule] 500 mg PO BID #14 capsule Ondansetron [Zofran Odt 4 mg Tablet] 1 - 2 tab PO Q4H PRN #15 tab.rapdis PRN Reason: For Nausea/Vomiting
[2017-04-13 21:52] LABS: ABSOLUTE EOSINOPHILS # (AUTO) 0.3 10^3/uL (0.0-0.6); ABSOLUTE LYMPHOCYTES (AUTO) 2.5 10^3/uL (0.5-4.7); ABSOLUTE MONOCYTES (AUTO) 0.9 10^3/uL (0.1-1.4); ABSOLUTE NEUT (AUTO) 8.9 10^3/uL (1.7-8.2); BASOPHILS % (AUTO) 0.3 % (0-2); EOSINOPHILS % (AUTO) 2.7 % (0-6); HEMOGLOBIN 13.4 g/dL (12.0-15.5); LYMPHOCYTES % (AUTO) 19.9 % (13-45); MEAN CORPUSCULAR HEMOGLOBIN 28.9 pg (27.0-33.4); MEAN CORPUSCULAR HGB CONC 34.4 g/dL (32.0-36.0); MEAN CORPUSCULAR VOLUME 84 fl (80-97); PLATELET COUNT 249 10^3/uL (150-450); RED BLOOD COUNT 4.65 10^6/uL (3.72-5.28); RED CELL DISTRIBUTION WIDTH 13.8 % (11.5-14.0); SEGMENTED NEUTROPHILS % (AUTO) 70.1 % (42-78); TOTAL CELLS COUNTED % (AUTO) 100 %; WHITE BLOOD COUNT 12.7 10^3/uL (4.0-10.5)
[2017-04-13 22:24] LABS: APPEARANCE,URINE CLOUDY; BILIRUBIN,URINE NEGATIVE (NEGATIVE); CALCIUM OXALATE CRYSTALS,URINE TOO NUMEROUS TO CNT /HPF; COLOR,URINE YELLOW; GLUCOSE, URINE NEGATIVE (NEGATIVE); KETONES,URINE NEGATIVE (NEGATIVE); LEUKOCYTE ESTERASE,URINE LARGE (NEGATIVE); NITRITE,URINE NEGATIVE (NEGATIVE); PROTEIN,URINE NEGATIVE (NEGATIVE)
[2017-04-13] MEDS ORDERED: CEPHALEXIN 500 MG CAPSULE PO ONE (23:17)
--- NOTE | 2017-04-14 00:59 | RADIOLOGY REPORT (SQ) ---
EXAM DESCRIPTION: U/S OB TRANSVAGINAL W/O DOP CLINICAL HISTORY: 21 years Female, 1st trimester pain COMPARISON: 03/16/2017 TECHNIQUE: Complete first trimester obstetrical ultrasound with transvaginal imaging. FINDINGS: Uterus measures 11.4 x 7.5 x 8.7 cm. Single intrauterine gestation. [place]-rump length of 6.69 cm compatible with an estimated gestational age of 13 weeks, 0 days. Heart rate of 160 bpm. Cervical length of 2.7 cm and closed. Gestational sac has a normal appearance. Anterior placenta. Tiny amount of free pelvic fluid. The ovaries are not identified bilaterally. No large adnexal masses. IMPRESSION: 1. Single live intrauterine with estimated gestational age of 13 weeks, 0 days on today's ultrasound. Heart rate of 160 beats for minute.
[2017-04-14] MEDS ORDERED: ONDANSETRON ODT 4 MG TAB (6 TAB/ER DISP) PO PRN (01:08)
[2017-04-14 02:01] VITALS: BP 134/67
== END 2017-04-14 01:00 | disposition home or self-care (01) ==
LOC: ER 20:28
DX: O26.891 Other specified pregnancy related conditions, first trimester (principal); R10.30 Lower abdominal pain, unspecified; R11.0 Nausea; M54.9 Dorsalgia, unspecified; Z3A.13 13 weeks gestation of pregnancy
CPT/HCPCS: 99284; 86900; 86901; 36415; 87086; 84702; 85025; 81001; 76817; J3490; S0119

== ENCOUNTER 2017-04-18 03:26 | Emergency (ER) | payer MEDICAID ==
[2017-04-18] MEDS ORDERED: ONDANSETRON HCL INJ/PF 4 MG/2 ML SDV IV ONE (04:53)
[2017-04-18 05:02] LABS: ABSOLUTE EOSINOPHILS # (AUTO) 0.1 10^3/uL (0.0-0.6); ABSOLUTE LYMPHOCYTES (AUTO) 1.5 10^3/uL (0.5-4.7); ABSOLUTE MONOCYTES (AUTO) 0.6 10^3/uL (0.1-1.4); ABSOLUTE NEUT (AUTO) 11.7 10^3/uL (1.7-8.2); BASOPHILS % (AUTO) 0.3 % (0-2); EOSINOPHILS % (AUTO) 0.6 % (0-6); HEMATOCRIT 39.7 % (36.0-47.0); HEMOGLOBIN 13.8 g/dL (12.0-15.5); LYMPHOCYTES % (AUTO) 10.9 % (13-45); MEAN CORPUSCULAR HEMOGLOBIN 29.3 pg (27.0-33.4); MEAN CORPUSCULAR HGB CONC 34.8 g/dL (32.0-36.0); MEAN CORPUSCULAR VOLUME 84 fl (80-97); MONOCYTES % (AUTO) 4.3 % (3-13); PLATELET COUNT 239 10^3/uL (150-450); RED BLOOD COUNT 4.72 10^6/uL (3.72-5.28); SEGMENTED NEUTROPHILS % (AUTO) 83.9 % (42-78); TOTAL CELLS COUNTED % (AUTO) 100 %
--- NOTE | 2017-04-18 05:02 | ER Document Report ---
ED General - General Chief Complaint: Chest Pain Stated Complaint: CHEST PAIN Time Seen by Provider: 04/18/17 04:24 TRAVEL OUTSIDE OF THE U.S. IN LAST 30 DAYS: No - HPI Notes: Patient is a 21-year-old female who is approximately 14 weeks who presents to the ED complaining of continued intermittent generalized abdominal cramping with a burning sensation that goes up into her chest. Patient states that she is eating and drinking without any difficulties. She is urinating normally and having normal bowel movements. Patient states that she is being treated currently for a UTI from her visit 1 week ago. Patient had lab work and an ultrasound performed at the time and was otherwise unremarkable for any acute pathology. Patient states that the cramping and pain have been ongoing since she found out she was several weeks ago. Patient has been taking some Tylenol with minimal relief. Patient does have intermittent nausea and rare vomiting. Patient states that she vomited once today. She denies any drug allergies or other significant past medical history. Patient reports a previous . Patient is being seen by the health department with an DIETETIC ASSISTANT appointment pending. Denies any headache, fever, neck pain, URI, sore throat, palpitations, syncope, cough, shortness of breath, wheeze, dyspnea, diarrhea, urinary retention, dysuria, hematuria, vaginal discharge/odor/bleeding, back pain, loss of control of bowel or bladder , numbness/tingling, saddle anesthesia, muscle paralysis/weakness, or rash. - Related Data Allergies/Adverse Reactions: No Known Allergies Allergy (Verified 03/06/17 18:27) Past Medical History - Social History Smoking Status: Unknown if Ever Smoked Family History: Reviewed & Not Pertinent Patient has suicidal ideation: No Patient has homicidal ideation: No Pulmonary Medical History: Reports: Hx Asthma Neurological Medical History: Reports: Hx Migraine Renal/ Medical History: Denies: Hx Peritoneal Dialysis Psychiatric Medical History: Reports: Hx Depression - post Past Surgical History: Reports: Hx Section, Hx Oral Surgery - [place] teeth - Immunizations Hx Diphtheria, Pertussis, Tetanus Vaccination: Yes Review of Systems - Review of Systems -: Yes All other systems reviewed and negative Physical Exam - Vital signs Vitals: Temp Pulse Resp BP Pulse Ox 97.8 F 76 22 H 130/64 H 100 04/18/17 03:30 04/18/17 03:30 04/18/17 03:30 04/18/17 03:30 04/18/17 03:30 - Notes Notes: PHYSICAL EXAMINATION: GENERAL: Well-appearing, well-nourished and in no acute distress. LUNGS: Breath sounds clear to auscultation bilaterally and equal. No wheezes rales or rhonchi. HEART: Regular rate and rhythm without murmurs, rubs, gallops. ABDOMEN: Soft, nondistended abdomen. No guarding, no rebound. No masses appreciated. Normal bowel sounds present. No CVA tenderness bilaterally. + mild generalized tenderness. No tenderness at [place]. Cordero neg. No peritoneal signs. Musculoskeletal: FROM to passive/active. Strength 5+/5. Extremities: No cyanosis, clubbing, or edema b/l. Peripheral pulses 2+. Capillary refill less than 3 seconds. NEUROLOGICAL: Cranial nerves grossly intact. Normal speech, normal gait. Normal sensory, motor exams PSYCH: Normal mood, normal affect. SKIN: Warm, Dry, normal turgor, no rashes or lesions noted. Course - Re-evaluation Re-evalutation: 04/18/17 07:03 Patient is an afebrile, well-hydrated, 21-year-old female who presents to the ED with abdominal pain not otherwise specified. Vitals are stable. PE is otherwise unremarkable. Patient's abdomen is soft and generally minimally tender without a Cordero sign and nontender at [place] point. CBC did have a mildly elevated white count, but patient has been vomiting and has been being treated for UTI. CMP was otherwise unremarkable for any acute pathology. Urinalysis showed improvement in her UTI. Patient is still on Keflex. Chest x- ray was unremarkable. His vaginal ultrasound was unremarkable for any acute pathology. Patient is tolerating p.o. without any difficulties. Lipase neg. Low suspicion/risk for acute appendicitis, bowel obstruction, acute cholecystitis, acute cholangitis, perforated diverticulitis, incarcerated hernia , pancreatitis, perforated ulcer, peritonitis, sepsis, pelvic inflammatory disease, ectopic , tubo-ovarian abscess, ovarian torsion, or other systemic emergent condition at this time. Patient is aware that her condition can change from initial presentation and she needs to monitor symptoms closely and seek medical attention if any acute changes. Conservative measures otherwise for symptoms. Recheck with OBGYN in 2-3 days. Recheck with your PCM in 2-3 days. Consider consult with a automotive center manager. Return to the ED with any worsening/concerning symptoms otherwise as reviewed in discharge. Patient is in agreement. - Vital Signs Vital signs: Temp Pulse Resp BP Pulse Ox 97.8 F 76 22 H 130/64 H 100 04/18/17 03:30 04/18/17 03:30 04/18/17 03:30 04/18/17 03:30 04/18/17 03:30 - Laboratory Result Diagrams: 04/18/17 04:53 04/18/17 04:53 Laboratory results interpreted by me: 04/18/17 04/18/17 04/18/17 04:53 04:53 06:40 WBC 14.0 H Seg Neutrophils % 83.9 H Lymphocytes % 10.9 L Absolute Neutrophils 11.7 H Sodium 134.3 L Carbon Dioxide 18 L Glucose 166 H Direct Bilirubin 0.5 H Beta HCG, Quant 19536.00 H Urine Glucose (UA) >=500 H Urine Ketones 80 H Urine Urobilinogen 2.0 H Discharge - Discharge Clinical Impression: Unspecified abdominal pain Qualifiers: Abdominal location: generalized Qualified Code(s): R10.84 - Generalized abdominal pain Condition: Stable Disposition: HOME, SELF-CARE Instructions: Antinausea Medication ([facility]), Abdominal Pain ([facility]), Observation for Appendicitis ([facility]), Pelvic Pain in ([facility]) Additional Instructions: Maintain adequate fluid and food intake [place] diet ([employer] Bananas, rice, apples, toast, etc Zofran as needed tylenol if needed Monitor for any worsening symptoms Make sure you are staying hydrated enough to urinate and have normal BM's Recheck with your PCM & OBGYN in 2-3 days Consider consult with Gastroenterology for ongoing/worsening symptoms Return to the ED with any worsening symptoms and/or development of fever, headache, chest pain, palpitations, syncope, shortness of breath, trouble breathing, abdominal pain, n/v/d, blood in stool/urine, weakness, or other worsening symptoms that are concerning to you. Prescriptions: Ondansetron [Zofran Odt 4 mg Tablet] 1 - 2 tab PO Q4H PRN #15 tab.rapdis PRN Reason: For Nausea/Vomiting Forms: Elevated Blood Pressure Referrals: [facility] [Provider Group] - Follow up in 3-5 days
[2017-04-18 05:20] LABS: ALANINE AMINOTRANSFERASE 32 U/L (9-52); ALBUMIN 4.4 g/dL (3.5-5.0); ALKALINE PHOSPHATASE 70 U/L (38-126); ANION GAP 10 (5-19); ASPARTATE AMINO TRANSFERASE 14 U/L (14-36); BILIRUBIN,DIRECT 0.5 mg/dL (0.0-0.4); BILIRUBIN,TOTAL 0.6 mg/dL (0.2-1.3); BLOOD UREA NITROGEN 9 mg/dL (7-20); CALCIUM 9.7 mg/dL (8.4-10.2); CARBON DIOXIDE 18 mmol/L (22-30); CHLORIDE 106 mmol/L (98-107); GLUCOSE 166 mg/dL (75-110); LIPASE 75.9 U/L (23-300); POTASSIUM 3.6 mmol/L (3.6-5.0); SODIUM 134.3 mmol/L (137-145); TOTAL PROTEIN 7.5 g/dL (6.3-8.2)
[2017-04-18] MEDS ORDERED: ACETAMINOPHEN 325 MG TABLET PO ONE (05:32)
--- NOTE | 2017-04-18 05:34 | RADIOLOGY REPORT (SQ) ---
EXAM DESCRIPTION: CHEST PA/LAT CLINICAL HISTORY: 21 years, Female, chest pain, COMPARISON: 01/28/16 NUMBER OF VIEWS: 2 FINDINGS: Normal lung volume, clear parenchyma, normal cardiac silhouette, and intact bony thorax. IMPRESSION: No acute cardiopulmonary findings.
--- NOTE | 2017-04-18 06:11 | RADIOLOGY REPORT (SQ) ---
EXAM DESCRIPTION: U/S 1TRIMESTER/1GEST W/DOPPLER CLINICAL HISTORY: 21 years, Female, lower abdominal pain/cramping, COMPARISON: 04/13/17, 02/12/17 TECHNIQUE: Transabdominal sonogram. LIMITATIONS: None. FINDINGS: Living intrauterine fetus measures 7.8 cm in length corresponding with a corresponding gestational age of 13w6d KAT of 10/18/2017. Cardiac activity is 150 bpm. No evidence of complication. 3.3 cm left ovary with likely 2.5 cm corpus luteum. 3.1 cm cervical length. Right ovary is not visualized. No significant free fluid. IMPRESSION: Living intrauterine fetus measures 13w6d. No evidence of complication.
--- NOTE | 2017-04-18 06:43 | EKG REPORT ---
SEVERITY:- BORDERLINE ECG - SINUS RHYTHM BORDERLINE T ABNORMALITIES, DIFFUSE LEADS : Confirmed by: Josh Ace MD 18-Apr-2017 06:42:37
[2017-04-18 06:59] LABS: APPEARANCE,URINE CLEAR; BILIRUBIN,URINE NEGATIVE (NEGATIVE); COLOR,URINE YELLOW; GLUCOSE, URINE >=500 mg/dL (NEGATIVE); KETONES,URINE 80 mg/dL (NEGATIVE); LEUKOCYTE ESTERASE,URINE NEGATIVE (NEGATIVE); NITRITE,URINE NEGATIVE (NEGATIVE); PROTEIN,URINE NEGATIVE (NEGATIVE); URINE SPECIFIC GRAVITY 1.023
[2017-04-18 07:30] VITALS: BP 125/67
== END 2017-04-18 07:30 | disposition home or self-care (01) ==
LOC: ER 03:26
DX: R10.84 Generalized abdominal pain (principal); O26.892 Other specified pregnancy related conditions, second trimester; R07.9 Chest pain, unspecified; Z3A.14 14 weeks gestation of pregnancy
CPT/HCPCS: 93005; 99285; 96374; 36415; 87086; 84702; 83690; 85025; 80053; 81001; 71046; 76801; 93976; 93010; J3490; J2405

== ENCOUNTER 2017-04-29 15:51 | Emergency (ER) | payer MEDICAID ==
[2017-04-29] MEDS ORDERED: METOCLOPRAMIDE HCL INJ/PF 10 MG/2 ML SDV IV ONE (16:25)
[2017-04-29] MEDS ORDERED: NORMAL SALINE 1000 ML 1,000 ML IV ONE (16:25)
[2017-04-29 16:54] LABS: ABSOLUTE BASOPHILS # (AUTO) 0.1 10^3/uL (0.0-0.2); ABSOLUTE LYMPHOCYTES (AUTO) 1.6 10^3/uL (0.5-4.7); ABSOLUTE MONOCYTES (AUTO) 0.7 10^3/uL (0.1-1.4); ABSOLUTE NEUT (AUTO) 13.6 10^3/uL (1.7-8.2); BASOPHILS % (AUTO) 0.5 % (0-2); EOSINOPHILS % (AUTO) 0.1 % (0-6); HEMATOCRIT 41.5 % (36.0-47.0); HEMOGLOBIN 14.6 g/dL (12.0-15.5); LYMPHOCYTES % (AUTO) 10.2 % (13-45); MEAN CORPUSCULAR HEMOGLOBIN 29.3 pg (27.0-33.4); MEAN CORPUSCULAR HGB CONC 35.2 g/dL (32.0-36.0); MEAN CORPUSCULAR VOLUME 83 fl (80-97); MONOCYTES % (AUTO) 4.4 % (3-13); PLATELET COUNT 353 10^3/uL (150-450); RED BLOOD COUNT 4.99 10^6/uL (3.72-5.28); RED CELL DISTRIBUTION WIDTH 13.3 % (11.5-14.0); SEGMENTED NEUTROPHILS % (AUTO) 84.8 % (42-78); TOTAL CELLS COUNTED % (AUTO) 100 %
[2017-04-29 17:03] LABS: AMORPHOUS SEDIMENT,URINE TRACE /HPF; APPEARANCE,URINE CLOUDY; BILIRUBIN,URINE NEGATIVE (NEGATIVE); COLOR,URINE YELLOW; GLUCOSE, URINE NEGATIVE (NEGATIVE); KETONES,URINE 80 mg/dL (NEGATIVE); LEUKOCYTE ESTERASE,URINE NEGATIVE (NEGATIVE); NITRITE,URINE NEGATIVE (NEGATIVE); PROTEIN,URINE 30 mg/dL (NEGATIVE); URINE SPECIFIC GRAVITY 1.019
[2017-04-29 17:15] LABS: ALANINE AMINOTRANSFERASE 40 U/L (9-52); ALBUMIN 4.7 g/dL (3.5-5.0); ALKALINE PHOSPHATASE 91 U/L (38-126); ANION GAP 14 (5-19); ASPARTATE AMINO TRANSFERASE 18 U/L (14-36); BILIRUBIN,DIRECT 0.4 mg/dL (0.0-0.4); BILIRUBIN,TOTAL 0.6 mg/dL (0.2-1.3); BLOOD UREA NITROGEN 6 mg/dL (7-20); CALCIUM 10.4 mg/dL (8.4-10.2); CARBON DIOXIDE 21 mmol/L (22-30); CHLORIDE 106 mmol/L (98-107); GLUCOSE 112 mg/dL (75-110); POTASSIUM 3.3 mmol/L (3.6-5.0); SODIUM 140.7 mmol/L (137-145); TOTAL PROTEIN 8.4 g/dL (6.3-8.2)
--- NOTE | 2017-04-29 17:25 | ER Document Report ---
ED General - General Chief Complaint: Nausea/Vomiting Stated Complaint: BACK PAIN, VOMITING, NAUSEA Time Seen by Provider: 04/29/17 16:13 Mode of Arrival: Ambulatory Information source: Patient Notes: 21-year-old female 16 weeks presents with complaints of nausea vomiting left upper quadrant abdominal pain. Patient denies any fevers or chills. pt has taken zofran no improvement. TRAVEL OUTSIDE OF THE [place] IN LAST 30 DAYS: No - HPI Onset: Other - 3 day duration Onset/Duration: Persistent, Waxing and waning Quality of pain: Achy Severity: Mild Pain Level: 1 Associated symptoms: Nausea, Vomiting Exacerbated by: Denies Relieved by: Denies Similar symptoms previously: No Recently seen / treated by doctor: No - Related Data Allergies/Adverse Reactions: No Known Allergies Allergy (Verified 04/29/17 15:53) Past Medical History - Social History Smoking Status: Never Smoker Cigarette use (# per day): No Chew tobacco use (# tins/day): No Smoking Education Provided: No Frequency of alcohol use: None Drug Abuse: None Family History: Reviewed & Not Pertinent Patient has suicidal ideation: No Patient has homicidal ideation: No Pulmonary Medical History: Reports: Hx Asthma Neurological Medical History: Reports: Hx Migraine Renal/ Medical History: Denies: Hx Peritoneal Dialysis Psychiatric Medical History: Reports: Hx Depression - post Past Surgical History: Reports: Hx Section, Hx Oral Surgery - [place] teeth - Immunizations Hx Diphtheria, Pertussis, Tetanus Vaccination: Yes Review of Systems - Review of Systems Notes: REVIEW OF SYSTEMS: CONSTITUTIONAL : Denies fever, chills, or sweats. Denies recent illness. EENT: Denies eye, ear, throat, or mouth pain or symptoms. Denies nasal or sinus congestion or discharge. Denies throat, tongue, or mouth swelling or difficulty swallowing. CARDIOVASCULAR: Denies chest pain. Denies palpitations or racing or irregular heart beat. Denies ankle edema. RESPIRATORY: Denies cough, cold, or chest congestion. Denies shortness of breath, difficulty breathing, or wheezing. GASTROINTESTINAL: admits to nausea vomiting abd pain GENITOURINARY: Denies difficulty urinating, painful urination, burning, frequency, blood in urine, or discharge. FEMALE GENITOURINARY: Denies vaginal bleeding, heavy or abnormal periods, irregular periods. Denies vaginal discharge or odor. MUSCULOSKELETAL: Denies back or neck pain or stiffness. Denies joint pain or swelling. SKIN: Denies rash, lesions or sores. HEMATOLOGIC : Denies easy bruising or bleeding. LYMPHATIC: Denies swollen, enlarged glands. NEUROLOGICAL: Denies confusion or altered mental status. Denies passing out or loss of consciousness. Denies dizziness or lightheadedness. Denies headache. Denies weakness or paralysis or loss of use of either side. Denies problems with gait or speech. Denies sensory loss, numbness, or tingling. Denies seizures. PSYCHIATRIC: Denies anxiety or stress. Denies depression, suicidal ideation, or homicidal ideation. ALL OTHER SYSTEMS REVIEWED AND NEGATIVE. PHYSICAL EXAMINATION: GENERAL: Well-appearing, well-nourished and in no acute distress. HEAD: Atraumatic, normocephalic. EYES: Pupils equal round and reactive to light, extraocular movements intact, conjunctiva are normal. ENT: Nares patent, oropharynx clear without exudates. Moist mucous membranes. NECK: Normal range of motion, supple without lymphadenopathy LUNGS: Breath sounds clear to auscultation bilaterally and equal. No wheezes rales or rhonchi. HEART: Regular rate and rhythm without murmurs ABDOMEN: Soft, minimally tender in the left upper quadrant Female : deferred Musculoskeletal: Normal range of motion, no pitting or edema. No cyanosis. NEUROLOGICAL: Cranial nerves grossly intact. Normal speech, normal gait. Normal sensory, motor exams PSYCH: Normal mood, normal affect. SKIN: Warm, Dry, normal turgor, no rashes or lesions noted. Dictation was performed using [employer] voice recognition software Physical Exam - Vital signs Vitals: Temp Pulse Resp BP 99.2 F 95 22 H 140/86 H 04/29/17 16:00 04/29/17 16:00 04/29/17 16:00 04/29/17 16:00 Course - Re-evaluation Re-evalutation: 04/29/17 21:02 Patient's white count has noted to be mildly elevated, she overall looks well is in no distress, patient is stable, she feels much better and wishes to be discharged home, I will discharge her with understand that the white count has elevated but there is no fever and no sign of infection at this time. And that she must return if there are any such concerns or if her symptoms continue. Patient states she understands and will do so After performing a Medical Screening Examination, I estimate there is LOW risk for ACUTE APPENDICITIS, BOWEL OBSTRUCTION, ACUTE CHOLECYSTITIS, PERFORATED DIVERTICULITIS, INCARCERATED HERNIA, PANCREATITIS, PELVIC INFLAMMATORY DISEASE, PERFORATED ULCER, ECTOPIC , or TUBO-OVARIAN ABSCESS, thus I consider the discharge disposition reasonable. Also, there is no evidence or peritonitis , sepsis, or toxicity. I have reevaluated this patient multiple times and no significant life threatening changes are noted. The patient and I have discussed the diagnosis and risks, and we agree with discharging home with close follow-up with the understanding that symptoms and presentations can change. We also discussed returning to the Emergency Department immediately if new or worsening symptoms occur. We have discussed the symptoms which are most concerning (e.g., bloody stool, fever, changing or worsening pain, vomiting) that necessitate immediate return. - Vital Signs Vital signs: Temp Pulse Resp BP Pulse Ox 99.2 F 95 22 H 140/86 H 04/29/17 16:00 04/29/17 16:00 04/29/17 16:00 04/29/17 16:00 - Laboratory Result Diagrams: 04/29/17 16:42 04/29/17 16:42 Laboratory results interpreted by me: 04/29/17 04/29/17 04/29/17 16:42 16:42 16:42 WBC 16.0 H Seg Neutrophils % 84.8 H Lymphocytes % 10.2 L Absolute Neutrophils 13.6 H Potassium 3.3 L Carbon Dioxide 21 L BUN 6 L Creatinine 0.48 L Glucose 112 H Calcium 10.4 H Total Protein 8.4 H Urine Protein 30 H Urine Ketones 80 H Urine Urobilinogen 2.0 H Discharge - Discharge Clinical Impression: Abdominal pain affecting Vomiting Qualifiers: Vomiting type: unspecified Vomiting Intractability: non-intractable Nausea presence: with nausea Qualified Code(s): R11.2 - Nausea with vomiting, unspecified Elevated WBC count Qualifiers: Leukocytosis type: other Qualified Code(s): D72.828 - Other elevated white blood cell count Condition: Stable Disposition: HOME, SELF-CARE Instructions: Abdominal Pain ([facility]) Additional Instructions: Follow up with your physician tomorrow for further care or return to the ED IMMEDIATELY if symptoms worsen or new concerns occur. If you cannot afford to follow up with your primary care physician a list of low cost clinics have been provided at the end of your discharge papers as well. Prescriptions: Promethazine HCl [Phenergan 25 mg Tablet] 1 - 2 tab PO Q6H PRN #15 tablet PRN Reason:
[2017-04-29 18:01] VITALS: BP 140/86
== END 2017-04-29 16:30 | disposition home or self-care (01) ==
LOC: ER 15:51
DX: O21.8 Other vomiting complicating pregnancy (principal); R10.12 Left upper quadrant pain; M54.9 Dorsalgia, unspecified; D72.828 Other elevated white blood cell count; Z3A.16 16 weeks gestation of pregnancy
CPT/HCPCS: 99283; 96374; 36415; 85025; 80053; 81001; J2765; J7030

== ENCOUNTER 2017-06-12 08:25 | Emergency (ER) | payer MEDICAID ==
--- NOTE | 2017-06-12 08:41 | ER Document Report ---
ED General - General Chief Complaint: Vomiting Stated Complaint: RIB PAIN,VOMITING Time Seen by Provider: 06/12/17 08:40 Mode of Arrival: Ambulatory Information source: Patient TRAVEL OUTSIDE OF THE [place].S[place] IN LAST 30 DAYS: No - HPI Notes: 21-year-old female who is 22 weeks 2 para 1 presents to the emergency room with complaints of vomiting 3 days, reports bilateral rib pain from dry heaving. Patient has not been seen by an CISTERN ROOM OPERATOR because she states she had a go to the health department. Denies any fevers or chills. Has not tried any [id number] medication. Denies any diarrhea. Denies any vaginal bleeding or pelvic pain. Patient has an CISTERN ROOM OPERATOR appointment appointment on Jun 17 2017. reports generalized abdominal pain. states this is from vomiting. Is not eating well, is drinking only water. Denies fevers, chills, chest pain,palpitations, shortness of breath, dyspnea, diarrhea,hematuria, blurred vision, double vision, loss of vision, speech changes, LH, dizziness, syncope, headaches, wheezing, ST, URI, neck pain, weakness, bowel or bladder dysfunction, saddle anesthesia, numbness or tingling in bilateral upper or lower extremities equally, muscle paralysis, weakness in bilateral upper or lower extremities equally or rash. Denies IV drug use. - Related Data Allergies/Adverse Reactions: No Known Allergies Allergy (Verified 04/29/17 15:53) Past Medical History - General Information source: Patient - Social History Smoking Status: Unknown if Ever Smoked Family History: Reviewed & Not Pertinent Pulmonary Medical History: Reports: Hx Asthma Neurological Medical History: Reports: Hx Migraine Renal/ Medical History: Denies: Hx Peritoneal Dialysis Psychiatric Medical History: Reports: Hx Depression - post Past Surgical History: Reports: Hx Section, Hx Oral Surgery - [place] teeth - Immunizations Hx Diphtheria, Pertussis, Tetanus Vaccination: Yes Review of Systems - Review of Systems Constitutional: No symptoms reported EENT: No symptoms reported Cardiovascular: No symptoms reported Respiratory: No symptoms reported Gastrointestinal: See HPI Genitourinary: No symptoms reported Female Genitourinary: No symptoms reported Musculoskeletal: No symptoms reported Skin: No symptoms reported Hematologic/Lymphatic: No symptoms reported Neurological/Psychological: No symptoms reported Physical Exam - Vital signs Vitals: Temp Pulse Resp BP Pulse Ox 98.3 F 90 18 135/77 H 99 06/12/17 08:32 06/12/17 08:32 06/12/17 08:32 06/12/17 08:32 06/12/17 08:32 - Notes Notes: PHYSICAL EXAMINATION: GENERAL: Well-appearing, well-nourished and in no acute distress. HEAD: Atraumatic, normocephalic. EYES: Pupils equal round and reactive to light, extraocular movements intact, conjunctiva are normal. ENT: Nares patent, oropharynx clear without exudates. Moist mucous membranes. NECK: Normal range of motion, supple without lymphadenopathy LUNGS: Breath sounds clear to auscultation bilaterally and equal. No wheezes rales or rhonchi. Reproduce her pain on palpation along left and right eighth and ninth intercostal spaces, no step-off noted. Noted generalized abdominal pain on palpation. No CVA tenderness appreciated. HEART: Regular rate and rhythm without murmurs ABDOMEN: Soft, nontender, nondistended abdomen. No guarding, no rebound. No masses appreciated. Female : deferred Musculoskeletal: Normal range of motion, no pitting or edema. No cyanosis. NEUROLOGICAL: Cranial nerves grossly intact. Normal speech, normal gait. Normal sensory, motor exams PSYCH: Normal mood, normal affect. SKIN: Warm, Dry, normal turgor, no rashes or lesions noted. Dictation was performed using [employer] voice recognition software Course - Re-evaluation Re-evalutation: 21-year-old female who is 22 weeks has stable vitals, is afebrile received 1 L of normal saline IV and antiemetic. cbc negative for leukocytosis or anemia. cmp negative for any hepatic or renal dysfunction, electrolytes without disturbances. CBC negative for any leukocytosis or anemia, CMP unremarkable. Urinalysis shows the patient does have a UTI we will treat with Macrobid. Consulted CALIXTO Baugh armed security professional at 1200, advised patient to be seen by CISTERN ROOM OPERATOR tomorrow. All the patient was appropriate to be discharged home, and can follow up with patient tomorrow in office. This provider attempted to make an appointment with [facility] associate at 12: 49 to make an appointment at Dr. Gudelia Rodas at 0900 at [facility] for tomorrow. At Advised to take vitamin b 6 and doxylamine for antiemetic. Increase oral hydration with Pedialyte today. Follow a bland diet. Advised to call tomorrow for an appointment. At this time will discharge with return precautions and follow-up recommendations. Verbal discharge instructions given a the bedside and opportunity for questions given. Medication warnings reviewed. Patient is in agreement with this plan and has verbalized understanding of return precautions and the need for primary care follow-up in the next 24-72 hours After performing a Medical Screening Examination, I estimate there is LOW risk for ACUTE APPENDICITIS, BOWEL OBSTRUCTION, ACUTE CHOLECYSTITIS, PERFORATED DIVERTICULITIS, INCARCERATED HERNIA, PANCREATITIS, PELVIC INFLAMMATORY DISEASE, PERFORATED ULCER, ECTOPIC , or TUBO-OVARIAN ABSCESS, thus I consider the discharge disposition reasonable. Also, there is no evidence or peritonitis , sepsis, or toxicity. I have reevaluated this patient multiple times and no significant life threatening changes are noted. The patient and I have discussed the diagnosis and risks, and we agree with discharging home with close follow-up with the understanding that symptoms and presentations can change. We also discussed returning to the Emergency Department immediately if new or worsening symptoms occur. We have discussed the symptoms which are most concerning (e.g., bloody stool, fever, changing or worsening pain, vomiting) that necessitate immediate return. - Vital Signs Vital signs: Temp Pulse Resp BP Pulse Ox 98.3 F 90 18 135/77 H 99 06/12/17 08:32 06/12/17 08:32 06/12/17 08:32 06/12/17 08:32 06/12/17 08:32 - Laboratory Result Diagrams: 06/12/17 09:05 06/12/17 09:05 Laboratory results interpreted by me: 06/12/17 06/12/17 06/12/17 09:05 09:05 10:52 Carbon Dioxide 20 L BUN 6 L Creatinine 0.46 L Glucose 112 H AST 9 L Beta HCG, Quant 30693.00 H Urine Urobilinogen 2.0 H Ur Leukocyte Esterase MODERATE H Discharge - Discharge Clinical Impression: Nausea and vomiting Qualifiers: Vomiting type: unspecified Vomiting Intractability: intractable Qualified Code( s): R11.2 - Nausea with vomiting, unspecified UTI (urinary tract infection) Qualifiers: Urinary tract infection type: acute cystitis Hematuria presence: without hematuria Qualified Code(s): N30.00 - Acute cystitis without hematuria Condition: Good Disposition: HOME, SELF-CARE Instructions: Antinausea Medication ([facility]), Nitrofurantoin ([facility]), Urinary Tract Infection ([facility]), Vomiting ([facility]) Prescriptions: Doxylamine Succinate/Vit B6 [Diclegigeorge Rubin 10-10 mg Tablet] 1 each PO QHS #30 tablet. Nitrofurantoin Monohyd/M-Cryst [Macrobid 100 mg Capsule] 1 tab PO BID #20 capsule Forms: Return to Work Referrals: JARRETT POWERS MD [Primary Care Provider] - Follow up as needed SOURAV JACKSON MD [ACTIVE STAFF] - Follow up tomorrow
[2017-06-12] MEDS ORDERED: ONDANSETRON HCL INJ/PF 4 MG/2 ML SDV IV ONE (09:36)
[2017-06-12] MEDS: NORMAL SALINE 1000 ML 1,000 ML IV PRN ×3 (09:52→12:20)
[2017-06-12 09:53] LABS: ALANINE AMINOTRANSFERASE 21 U/L (9-52); ALBUMIN 3.9 g/dL (3.5-5.0); ALKALINE PHOSPHATASE 70 U/L (38-126); ANION GAP 16 (5-19); ASPARTATE AMINO TRANSFERASE 9 U/L (14-36); BILIRUBIN,DIRECT 0.3 mg/dL (0.0-0.4); BILIRUBIN,TOTAL 0.5 mg/dL (0.2-1.3); BLOOD UREA NITROGEN 6 mg/dL (7-20); CALCIUM 9.8 mg/dL (8.4-10.2); CARBON DIOXIDE 20 mmol/L (22-30); CHLORIDE 106 mmol/L (98-107); GLUCOSE 112 mg/dL (75-110); POTASSIUM 3.7 mmol/L (3.6-5.0); SODIUM 141.8 mmol/L (137-145); TOTAL PROTEIN 6.9 g/dL (6.3-8.2)
[2017-06-12 09:55] LABS: ABSOLUTE EOSINOPHILS # (AUTO) 0.2 10^3/uL (0.0-0.6); ABSOLUTE LYMPHOCYTES (AUTO) 1.7 10^3/uL (0.5-4.7); ABSOLUTE MONOCYTES (AUTO) 0.5 10^3/uL (0.1-1.4); BASOPHILS % (AUTO) 0.2 % (0-2); EOSINOPHILS % (AUTO) 1.9 % (0-6); HEMATOCRIT 36.5 % (36.0-47.0); HEMOGLOBIN 12.6 g/dL (12.0-15.5); LYMPHOCYTES % (AUTO) 16.1 % (13-45); MEAN CORPUSCULAR HEMOGLOBIN 29.2 pg (27.0-33.4); MEAN CORPUSCULAR HGB CONC 34.5 g/dL (32.0-36.0); MEAN CORPUSCULAR VOLUME 85 fl (80-97); MONOCYTES % (AUTO) 5.1 % (3-13); PLATELET COUNT 249 10^3/uL (150-450); RED BLOOD COUNT 4.32 10^6/uL (3.72-5.28); RED CELL DISTRIBUTION WIDTH 13.6 % (11.5-14.0); SEGMENTED NEUTROPHILS % (AUTO) 76.7 % (42-78); TOTAL CELLS COUNTED % (AUTO) 100 %; WHITE BLOOD COUNT 10.4 10^3/uL (4.0-10.5)
[2017-06-12] MEDS ORDERED: NORMAL SALINE 1000 ML 1,000 ML IV PRN (10:34)
[2017-06-12] MEDS ORDERED: PHENAZOPYRIDINE HCL 100 MG TABLET PO ONE (10:34)
[2017-06-12 11:11] LABS: AMORPHOUS SEDIMENT,URINE TRACE /HPF; APPEARANCE,URINE CLOUDY; BILIRUBIN,URINE NEGATIVE (NEGATIVE); COLOR,URINE YELLOW; GLUCOSE, URINE NEGATIVE (NEGATIVE); KETONES,URINE NEGATIVE (NEGATIVE); LEUKOCYTE ESTERASE,URINE MODERATE (NEGATIVE); NITRITE,URINE NEGATIVE (NEGATIVE); PROTEIN,URINE NEGATIVE (NEGATIVE); URINE SPECIFIC GRAVITY 1.018
[2017-06-12 12:50] VITALS: BP 127/62
== END 2017-06-12 12:51 | disposition home or self-care (01) ==
LOC: ER 08:25
DX: O23.12 Infections of bladder in pregnancy, second trimester (principal); O26.892 Other specified pregnancy related conditions, second trimester; R11.2 Nausea with vomiting, unspecified; R07.81 Pleurodynia; R10.84 Generalized abdominal pain; Z3A.22 22 weeks gestation of pregnancy; J45.909 Unspecified asthma, uncomplicated
CPT/HCPCS: 99284; 96361; 96374; 36415; 87086; 84702; 85025; 80053; 81001; J3490; J2405; J7030

== ENCOUNTER 2017-07-30 00:02 | Outpatient (CLI) | payer MEDICAID ==
[2017-07-30 00:37] LABS: APPEARANCE,URINE SLIGHTLY-CLOUDY; BILIRUBIN,URINE NEGATIVE (NEGATIVE); COLOR,URINE YELLOW; GLUCOSE, URINE NEGATIVE (NEGATIVE); KETONES,URINE 80 mg/dL (NEGATIVE); LEUKOCYTE ESTERASE,URINE SMALL (NEGATIVE); NITRITE,URINE NEGATIVE (NEGATIVE); PROTEIN,URINE NEGATIVE (NEGATIVE); URINE SPECIFIC GRAVITY 1.017; UROBILINOGEN,URINE NEGATIVE mg/dL (<2.0)
[2017-07-30 00:50] LABS: URINE AMPHETAMINES SCREEN NEGATIVE; URINE BARBITURATES SCREEN NEGATIVE; URINE BENZODIAZEPINES SCREEN NEGATIVE; URINE COCAINE SCREEN NEGATIVE; URINE MARIJUANA (THC) SCREEN NEGATIVE; URINE METHADONE SCREEN NEGATIVE; URINE PHENCYCLIDINE SCREEN NEGATIVE
[2017-07-30] MEDS ORDERED: HYDROXYZINE PAMOATE 50 MG CAPSULE PO ONE (01:03)
[2017-07-30] MEDS ORDERED: HYDROXYZINE PAMOATE 50 MG CAPSULE ONE (01:08)
[2017-07-30] MEDS ORDERED: ONDANSETRON HCL 8 MG TABLET ONE (01:30)
[2017-07-30] MEDS ORDERED: ONDANSETRON 4 MG TAB.RAPDIS ONE (01:33)
[2017-07-30] MEDS ORDERED: ONDANSETRON 4 MG TAB.RAPDIS PO ONE (01:38)
== END 2017-07-30 01:46 | disposition home or self-care (01) ==
LOC: LC 00:02
PROVIDERS: ATTEND Obstetrics & Gynecology
PROC: 4A1HXCZ Monitoring of Products of Conception, Cardiac Rate, External Approach (ICD-10-PCS; principal; 2017-07-30)
DX: O47.03 False labor before 37 completed weeks of gestation, third trimester (principal); Z3A.28 28 weeks gestation of pregnancy
CPT/HCPCS: 59899; 81001; 80307; S0119; J3490

== ENCOUNTER 2017-08-04 17:52 | Emergency (ER) | payer MEDICAID ==
--- NOTE | 2017-08-04 19:51 | ER Document Report ---
ED Medical Screen (RME) - General Chief Complaint: Nausea/Vomiting Stated Complaint: VOMITING/ABDOMINAL PAIN Time Seen by Provider: 08/04/17 19:46 Mode of Arrival: Ambulatory Information source: Patient Notes: Anibalt reports vomiting "feces like" material starting at 9am this morning. Has vomited more than 10x today. Normal BM yesterday. Hx of . Reports fever this morning. Denies any urinary symptoms. No history of bowel problems. I have greeted and performed a rapid initial assessment of this patient. A comprehensive ED assessment and evaluation of the patient, analysis of test results and completion of the medical decision making process will be conducted by additional ED providers. TRAVEL OUTSIDE OF THE [place] IN LAST 30 DAYS: No - Related Data Allergies/Adverse Reactions: No Known Allergies Allergy (Verified 07/30/17 01:05) Past Medical History - General Information source: Patient - Social History Cigarette use (# per day): No Frequency of alcohol use: None Drug Abuse: None Pulmonary Medical History: Reports: Hx Asthma Neurological Medical History: Reports: Hx Migraine Renal/ Medical History: Denies: Hx Peritoneal Dialysis Psychiatric Medical History: Reports: Hx Depression - post Past Surgical History: Reports: Hx Section, Hx Oral Surgery - [place] teeth - Immunizations Hx Diphtheria, Pertussis, Tetanus Vaccination: Yes History of Influenza Vaccine for 11/2016 - 04/2017 Season: No Review of Systems - Review of Systems Constitutional: No symptoms reported EENT: No symptoms reported Cardiovascular: No symptoms reported Respiratory: No symptoms reported Gastrointestinal: Abdominal pain, Nausea, Vomiting Genitourinary: No symptoms reported Female Genitourinary: No symptoms reported Musculoskeletal: No symptoms reported Skin: No symptoms reported Hematologic/Lymphatic: No symptoms reported Neurological/Psychological: No symptoms reported Physical Exam - Vital signs Vitals: Temp Pulse Resp BP Pulse Ox 99.6 F 115 H 16 125/80 98 08/04/17 18:12 08/04/17 18:12 08/04/17 18:12 08/04/17 18:12 08/04/17 18:12 - Abdominal Distension: Distended Bowel sounds: Normal Tenderness: Tender Notes: Generalized TTP. Course - Vital Signs Vital signs: Temp Pulse Resp BP Pulse Ox 99.6 F 115 H 16 125/80 98 08/04/17 18:12 08/04/17 18:12 08/04/17 18:12 08/04/17 18:12 08/04/17 18:12 Doctor's Discharge - Discharge Referrals: KLAUS BARRERA MD [Primary Care Provider] - Follow up as needed
[2017-08-04 20:24] LABS: ABSOLUTE LYMPHOCYTES (AUTO) 1.1 10^3/uL (0.5-4.7); ABSOLUTE MONOCYTES (AUTO) 0.8 10^3/uL (0.1-1.4); ABSOLUTE NEUT (AUTO) 8.8 10^3/uL (1.7-8.2); BASOPHILS % (AUTO) 0.1 % (0-2); EOSINOPHILS % (AUTO) 0.4 % (0-6); HEMATOCRIT 38.9 % (36.0-47.0); HEMOGLOBIN 13.6 g/dL (12.0-15.5); LYMPHOCYTES % (AUTO) 10.1 % (13-45); MEAN CORPUSCULAR HEMOGLOBIN 29.6 pg (27.0-33.4); MEAN CORPUSCULAR VOLUME 85 fl (80-97); MONOCYTES % (AUTO) 7.4 % (3-13); PLATELET COUNT 257 10^3/uL (150-450); RED BLOOD COUNT 4.59 10^6/uL (3.72-5.28); RED CELL DISTRIBUTION WIDTH 13.5 % (11.5-14.0); TOTAL CELLS COUNTED % (AUTO) 100 %; WHITE BLOOD COUNT 10.8 10^3/uL (4.0-10.5)
[2017-08-04 20:30] LABS: APPEARANCE,URINE SLIGHTLY-CLOUDY; BILIRUBIN,URINE NEGATIVE (NEGATIVE); COLOR,URINE YELLOW; GLUCOSE, URINE NEGATIVE (NEGATIVE); KETONES,URINE 80 mg/dL (NEGATIVE); LEUKOCYTE ESTERASE,URINE SMALL (NEGATIVE); NITRITE,URINE NEGATIVE (NEGATIVE); PROTEIN,URINE 30 mg/dL (NEGATIVE); URINE SPECIFIC GRAVITY 1.026
[2017-08-04 20:48] LABS: ALANINE AMINOTRANSFERASE 15 U/L (9-52); ALBUMIN 4.1 g/dL (3.5-5.0); ALKALINE PHOSPHATASE 102 U/L (38-126); ANION GAP 16 (5-19); ASPARTATE AMINO TRANSFERASE 8 U/L (14-36); BILIRUBIN,DIRECT 0.3 mg/dL (0.0-0.4); BILIRUBIN,TOTAL 0.9 mg/dL (0.2-1.3); BLOOD UREA NITROGEN 9 mg/dL (7-20); CALCIUM 10.1 mg/dL (8.4-10.2); CARBON DIOXIDE 21 mmol/L (22-30); CHLORIDE 105 mmol/L (98-107); GLUCOSE 95 mg/dL (75-110); LIPASE 58.4 U/L (23-300); POTASSIUM 3.9 mmol/L (3.6-5.0); SODIUM 141.6 mmol/L (137-145); TOTAL PROTEIN 7.4 g/dL (6.3-8.2)
[2017-08-04] MEDS ORDERED: NORMAL SALINE 1000 ML 1,000 ML IV PRN (22:24)
[2017-08-04] MEDS ORDERED: METOCLOPRAMIDE HCL INJ/PF 10 MG/2 ML SDV IV ONE (22:24)
--- NOTE | 2017-08-04 22:41 | ER Document Report ---
ED General - General Chief Complaint: Nausea/Vomiting Stated Complaint: VOMITING/ABDOMINAL PAIN Time Seen by Provider: 08/04/17 19:46 Mode of Arrival: Ambulatory Information source: Patient Notes: 21-year-old female who is approximately 30 weeks presents with complaints of vomiting just prior to arrival. Patient believes that she was vomiting coffee-ground emesis that smelled like stool. Patient notes her last bowel movement was yesterday. She denies any fevers or chills. Patient denies TRAVEL OUTSIDE OF THE [place] IN LAST 30 DAYS: No - HPI Onset: Just prior to arrival Onset/Duration: Sudden Quality of pain: Cramping Severity: Mild Pain Level: 1 Associated symptoms: Nausea, Vomiting Exacerbated by: Denies Relieved by: Denies Similar symptoms previously: No Recently seen / treated by doctor: No - Related Data Allergies/Adverse Reactions: No Known Allergies Allergy (Verified 07/30/17 01:05) Past Medical History - General Information source: Patient - Social History Smoking Status: Unknown if Ever Smoked Cigarette use (# per day): No Chew tobacco use (# tins/day): No Smoking Education Provided: No Frequency of alcohol use: None Drug Abuse: None Family History: Reviewed & Not Pertinent Patient has suicidal ideation: No Patient has homicidal ideation: No Pulmonary Medical History: Reports: Hx Asthma Neurological Medical History: Reports: Hx Migraine Renal/ Medical History: Denies: Hx Peritoneal Dialysis Psychiatric Medical History: Reports: Hx Depression - post Past Surgical History: Reports: Hx Section, Hx Oral Surgery - [place] teeth - Immunizations Hx Diphtheria, Pertussis, Tetanus Vaccination: Yes Review of Systems - Review of Systems Notes: REVIEW OF SYSTEMS: CONSTITUTIONAL : Denies fever, chills, or sweats. Denies recent illness. EENT: Denies eye, ear, throat, or mouth pain or symptoms. Denies nasal or sinus congestion or discharge. Denies throat, tongue, or mouth swelling or difficulty swallowing. CARDIOVASCULAR: Denies chest pain. Denies palpitations or racing or irregular heart beat. Denies ankle edema. RESPIRATORY: Denies cough, cold, or chest congestion. Denies shortness of breath, difficulty breathing, or wheezing. GASTROINTESTINAL: Admits to abdominal pain cramping vomiting coffee-ground emesis GENITOURINARY: Denies difficulty urinating, painful urination, burning, frequency, blood in urine, or discharge. FEMALE GENITOURINARY: Denies vaginal bleeding, heavy or abnormal periods, irregular periods. Denies vaginal discharge or odor. MUSCULOSKELETAL: Denies back or neck pain or stiffness. Denies joint pain or swelling. SKIN: Denies rash, lesions or sores. HEMATOLOGIC : Denies easy bruising or bleeding. LYMPHATIC: Denies swollen, enlarged glands. NEUROLOGICAL: Denies confusion or altered mental status. Denies passing out or loss of consciousness. Denies dizziness or lightheadedness. Denies headache. Denies weakness or paralysis or loss of use of either side. Denies problems with gait or speech. Denies sensory loss, numbness, or tingling. Denies seizures. PSYCHIATRIC: Denies anxiety or stress. Denies depression, suicidal ideation, or homicidal ideation. ALL OTHER SYSTEMS REVIEWED AND NEGATIVE. PHYSICAL EXAMINATION: GENERAL: Well-appearing, well-nourished and in no acute distress. HEAD: Atraumatic, normocephalic. EYES: Pupils equal round and reactive to light, extraocular movements intact, conjunctiva are normal. ENT: Nares patent, oropharynx clear without exudates. Moist mucous membranes. NECK: Normal range of motion, supple without lymphadenopathy LUNGS: Breath sounds clear to auscultation bilaterally and equal. No wheezes rales or rhonchi. HEART: Regular rate and rhythm without murmurs ABDOMEN: Gravid abdomen, generalized tenderness, Hemoccult performed with tech in the room Female : deferred Musculoskeletal: Normal range of motion, no pitting or edema. No cyanosis. NEUROLOGICAL: Cranial nerves grossly intact. Normal speech, normal gait. Normal sensory, motor exams PSYCH: Normal mood, normal affect. SKIN: Warm, Dry, normal turgor, no rashes or lesions noted. Dictation was performed using [employer] voice recognition software Physical Exam - Vital signs Vitals: Temp Pulse Resp BP Pulse Ox 99.6 F 115 H 16 125/80 98 08/04/17 18:12 08/04/17 18:12 08/04/17 18:12 08/04/17 18:12 08/04/17 18:12 Course - Re-evaluation Re-evalutation: 08/04/17 22:40 Patient's presentation is quite benign, her lab work notes mild white count elevation which would be consistent with , she does have some ketones in her urine will be given IV fluids, there is a concern for vomiting blood even though the patient has not vomited in the 3 hours that she has been here and is eating in the room as I walk in. We did discuss the use of x-ray to rule out an obstruction, patient and her mother understand risks and benefits and wished further imaging to be performed 08/04/17 23:22 Patient's x-ray notes no significant abnormality, the nausea control has significantly improved her symptoms. Patient overall looks well is eating crackers again After performing a Medical Screening Examination, I estimate there is LOW risk for ACUTE APPENDICITIS, BOWEL OBSTRUCTION, ACUTE CHOLECYSTITIS, PERFORATED DIVERTICULITIS, INCARCERATED HERNIA, PANCREATITIS, PELVIC INFLAMMATORY DISEASE, PERFORATED ULCER, ECTOPIC , or TUBO-OVARIAN ABSCESS, thus I consider the discharge disposition reasonable. Also, there is no evidence or peritonitis , sepsis, or toxicity. I have reevaluated this patient multiple times and no significant life threatening changes are noted. The patient and I have discussed the diagnosis and risks, and we agree with discharging home with close follow-up with the understanding that symptoms and presentations can change. We also discussed returning to the Emergency Department immediately if new or worsening symptoms occur. We have discussed the symptoms which are most concerning (e.g., bloody stool, fever, changing or worsening pain, vomiting) that necessitate immediate return. - Vital Signs Vital signs: Temp Pulse Resp BP Pulse Ox 99.6 F 115 H 16 125/80 98 08/04/17 18:12 08/04/17 18:12 08/04/17 18:12 08/04/17 18:12 08/04/17 18:12 - Laboratory Result Diagrams: 08/04/17 19:40 08/04/17 19:40 Laboratory results interpreted by me: 08/04/17 08/04/17 08/04/17 19:40 19:40 19:40 WBC 10.8 H Seg Neutrophils % 82.0 H Lymphocytes % 10.1 L Absolute Neutrophils 8.8 H Carbon Dioxide 21 L AST 8 L Serum HCG, Qual POSITIVE H Urine Protein Urine Ketones Urine Urobilinogen Ur Leukocyte Esterase 08/04/17 19:40 WBC Seg Neutrophils % Lymphocytes % Absolute Neutrophils Carbon Dioxide AST Serum HCG, Qual Urine Protein 30 H Urine Ketones 80 H Urine Urobilinogen 2.0 H Ur Leukocyte Esterase SMALL H - Diagnostic Test Radiology reviewed: Image reviewed - X-ray acute abdominal series notes third trimester fetus no acute abnormalities, Reports reviewed Discharge - Discharge Clinical Impression: Nausea/vomiting in , Ketonuria Condition: Stable Disposition: HOME, SELF-CARE Instructions: Vomiting ([facility]) Prescriptions: Metoclopramide HCl [Reglan 10 mg Tablet] 1 - 2 tab PO Q6 #25 tablet Referrals: KLAUS BARRERA MD [Primary Care Provider] - Follow up as needed
--- NOTE | 2017-08-04 23:15 | RADIOLOGY REPORT (SQ) ---
EXAM DESCRIPTION: Acute abdominal series COMPLETED DATE/TME: CLINICAL HISTORY: 21 years Female, vomiting stool, 30 weeks COMPARISON: None. NUMBER OF VIEWS/TECHNIQUE: 2 FINDINGS: Intestinal gas pattern is within normal limits. No suspicious calcification. Grossly intact skeletal structures. No acute cardiopulmonary findings. Gravid uterus with third trimester fetus. IMPRESSION: No acute findings. Third trimester fetus.
[2017-08-04 23:40] VITALS: BP 121/56
== END 2017-08-04 23:41 | disposition home or self-care (01) ==
LOC: ER 17:52
DX: O21.2 Late vomiting of pregnancy (principal); O26.893 Other specified pregnancy related conditions, third trimester; R82.4 Acetonuria; O99.113 Other diseases of the blood and blood-forming organs and certain disorders involving the immune mechanism complicating pregnancy, third trimester; D72.829 Elevated white blood cell count, unspecified; O99.513 Diseases of the respiratory system complicating pregnancy, third trimester; J45.909 Unspecified asthma, uncomplicated; Z3A.00 Weeks of gestation of pregnancy not specified
CPT/HCPCS: 99284; 96361; 96374; 36415; 83690; 84703; 85025; 82272; 80053; 81001; 74022; J2765; J7030

== ENCOUNTER 2017-10-06 21:14 | Outpatient (CLI) | payer MEDICAID ==
[2017-10-06 21:48] LABS: APPEARANCE,URINE SLIGHTLY-CLOUDY; BILIRUBIN,URINE NEGATIVE (NEGATIVE); COLOR,URINE YELLOW; GLUCOSE, URINE NEGATIVE (NEGATIVE); KETONES,URINE NEGATIVE (NEGATIVE); LEUKOCYTE ESTERASE,URINE LARGE (NEGATIVE); NITRITE,URINE NEGATIVE (NEGATIVE); PROTEIN,URINE NEGATIVE (NEGATIVE); URINE SPECIFIC GRAVITY 1.013; UROBILINOGEN,URINE NEGATIVE mg/dL (<2.0)
[2017-10-06] MEDS ORDERED: ACETAMINOPHEN 325 MG TABLET PO ONE (21:56)
[2017-10-06] MEDS ORDERED: ACETAMINOPHEN 325 MG TABLET ONE (21:58)
[2017-10-06 22:03] LABS: URINE AMPHETAMINES SCREEN NEGATIVE; URINE BARBITURATES SCREEN NEGATIVE; URINE BENZODIAZEPINES SCREEN NEGATIVE; URINE COCAINE SCREEN NEGATIVE; URINE MARIJUANA (THC) SCREEN NEGATIVE; URINE METHADONE SCREEN NEGATIVE; URINE PHENCYCLIDINE SCREEN NEGATIVE
[2017-10-06 22:27] LABS: ABSOLUTE EOSINOPHILS # (AUTO) 0.2 10^3/uL (0.0-0.6); ABSOLUTE LYMPHOCYTES (AUTO) 1.7 10^3/uL (0.5-4.7); ABSOLUTE MONOCYTES (AUTO) 0.5 10^3/uL (0.1-1.4); ABSOLUTE NEUT (AUTO) 6.2 10^3/uL (1.7-8.2); BASOPHILS % (AUTO) 0.2 % (0-2); EOSINOPHILS % (AUTO) 2.2 % (0-6); HEMOGLOBIN 12.4 g/dL (12.0-15.5); MEAN CORPUSCULAR HEMOGLOBIN 28.7 pg (27.0-33.4); MEAN CORPUSCULAR HGB CONC 34.4 g/dL (32.0-36.0); MEAN CORPUSCULAR VOLUME 84 fl (80-97); MONOCYTES % (AUTO) 6.3 % (3-13); PLATELET COUNT 197 10^3/uL (150-450); RED BLOOD COUNT 4.32 10^6/uL (3.72-5.28); SEGMENTED NEUTROPHILS % (AUTO) 71.3 % (42-78); TOTAL CELLS COUNTED % (AUTO) 100 %; WHITE BLOOD COUNT 8.7 10^3/uL (4.0-10.5)
[2017-10-06 22:32] LABS: UR PRO/CREAT RATIO RESULT 0.3 mg/mg (0.0-0.2); URINE CREATININE 69.6 mg/dL (16-327); URINE PROTEIN 21.9 mg/dL (<12)
[2017-10-06 22:44] LABS: ALANINE AMINOTRANSFERASE 18 U/L (9-52); ALBUMIN 3.9 g/dL (3.5-5.0); ALKALINE PHOSPHATASE 148 U/L (38-126); ANION GAP 12 (5-19); ASPARTATE AMINO TRANSFERASE 11 U/L (14-36); BILIRUBIN,DIRECT 0.2 mg/dL (0.0-0.4); BILIRUBIN,TOTAL 0.5 mg/dL (0.2-1.3); BLOOD UREA NITROGEN 7 mg/dL (7-20); CALCIUM 10.1 mg/dL (8.4-10.2); CARBON DIOXIDE 20 mmol/L (22-30); CHLORIDE 107 mmol/L (98-107); GLUCOSE 89 mg/dL (75-110); POTASSIUM 4.2 mmol/L (3.6-5.0); SODIUM 139.1 mmol/L (137-145); TOTAL PROTEIN 7.1 g/dL (6.3-8.2); URIC ACID 3.8 mg/dL (2.5-6.2)
--- NOTE | 2017-10-06 23:03 | Non Stress Test Report ---
Non Stress Test Datetime Report Generated by CPN: 10/06/2017 23:02 DEMOGRAPHIC Test Number: 1 EGA NST: 38.2 INDICATION Indication for Study: Ordered by Provider Indication for Study (NST) Other: Labor Check MONITORING Monitor Explained: Monitor Explained; Test Explained; Patient Verbalized Understanding Time on Monitor: 10/06/2017 21:34 Time off Monitor: 10/06/2017 22:58 NST Duration: 84 NST INTERVENTIONS NST Interventions: PO Hydration; Reposition Patient Physician Notified NST: Dr. Morales BABY A: [id number] BABY A Movement : Present Contraction Frequency : occasional with irritability FHR Baseline : 135 Accelerations : 15X15 Decelerations : None Variability : Moderate 6-25bpm NST Review: Meets Criteria for Reactive NST NST Review and Verified By : IVANA Squires NST Results: Reactive NST REPORT Report Trigger: Send Report
== END 2017-10-06 23:09 | disposition home or self-care (01) ==
LOC: LC 21:14
PROVIDERS: ATTEND Obstetrics & Gynecology Gynecology
PROC: 4A1HXCZ Monitoring of Products of Conception, Cardiac Rate, External Approach (ICD-10-PCS; principal; 2017-10-06)
DX: O47.1 False labor at or after 37 completed weeks of gestation (principal); Z3A.38 38 weeks gestation of pregnancy
CPT/HCPCS: 59025; 36415; 83615; 84156; 84550; 82570; 85025; 81005; 80053; 80307; J3490

== ENCOUNTER 2017-10-07 22:25 | Inpatient (IN) | payer MEDICAID ==
[2017-10-07 23:24] LABS: ABSOLUTE EOSINOPHILS # (AUTO) 0.2 10^3/uL (0.0-0.6); ABSOLUTE LYMPHOCYTES (AUTO) 1.8 10^3/uL (0.5-4.7); ABSOLUTE MONOCYTES (AUTO) 0.6 10^3/uL (0.1-1.4); ABSOLUTE NEUT (AUTO) 5.3 10^3/uL (1.7-8.2); BASOPHILS % (AUTO) 0.4 % (0-2); EOSINOPHILS % (AUTO) 2.3 % (0-6); HEMATOCRIT 36.6 % (36.0-47.0); HEMOGLOBIN 12.4 g/dL (12.0-15.5); LYMPHOCYTES % (AUTO) 22.6 % (13-45); MEAN CORPUSCULAR HEMOGLOBIN 28.2 pg (27.0-33.4); MEAN CORPUSCULAR HGB CONC 33.9 g/dL (32.0-36.0); MEAN CORPUSCULAR VOLUME 83 fl (80-97); MONOCYTES % (AUTO) 7.5 % (3-13); PLATELET COUNT 186 10^3/uL (150-450); RED CELL DISTRIBUTION WIDTH 14.2 % (11.5-14.0); SEGMENTED NEUTROPHILS % (AUTO) 67.2 % (42-78); TOTAL CELLS COUNTED % (AUTO) 100 %; WHITE BLOOD COUNT 7.9 10^3/uL (4.0-10.5)
[2017-10-07 23:27] LABS: APPEARANCE,URINE CLEAR; BILIRUBIN,URINE NEGATIVE (NEGATIVE); COLOR,URINE YELLOW; GLUCOSE, URINE NEGATIVE (NEGATIVE); KETONES,URINE NEGATIVE (NEGATIVE); LEUKOCYTE ESTERASE,URINE MODERATE (NEGATIVE); NITRITE,URINE NEGATIVE (NEGATIVE); PROTEIN,URINE NEGATIVE (NEGATIVE); URINE SPECIFIC GRAVITY 1.014; UROBILINOGEN,URINE NEGATIVE mg/dL (<2.0)
[2017-10-07 23:34] LABS: ALANINE AMINOTRANSFERASE 22 U/L (9-52); ALBUMIN 3.7 g/dL (3.5-5.0); ALKALINE PHOSPHATASE 135 U/L (38-126); ANION GAP 13 (5-19); ASPARTATE AMINO TRANSFERASE 10 U/L (14-36); BILIRUBIN,DIRECT 0.2 mg/dL (0.0-0.4); BILIRUBIN,TOTAL 0.4 mg/dL (0.2-1.3); BLOOD UREA NITROGEN 9 mg/dL (7-20); CALCIUM 9.7 mg/dL (8.4-10.2); CARBON DIOXIDE 17 mmol/L (22-30); CHLORIDE 108 mmol/L (98-107); GLUCOSE 83 mg/dL (75-110); SODIUM 138.1 mmol/L (137-145); TOTAL PROTEIN 6.8 g/dL (6.3-8.2); URIC ACID 3.9 mg/dL (2.5-6.2)
[2017-10-07 23:48] LABS: URINE AMPHETAMINES SCREEN NEGATIVE; URINE BARBITURATES SCREEN NEGATIVE; URINE BENZODIAZEPINES SCREEN NEGATIVE; URINE COCAINE SCREEN NEGATIVE; URINE MARIJUANA (THC) SCREEN NEGATIVE; URINE METHADONE SCREEN NEGATIVE; URINE PHENCYCLIDINE SCREEN NEGATIVE
[2017-10-07 23:52] LABS: UR PRO/CREAT RATIO RESULT 0.4 mg/mg (0.0-0.2); URINE CREATININE 55.9 mg/dL (16-327); URINE PROTEIN 19.9 mg/dL (<12)
[2017-10-08] MEDS ORDERED: NIFEDIPINE 30 MG TAB.ER.24 PO ONE ×4 (00:06→22:02)
[2017-10-08] MEDS ORDERED: BUTALB/ACETAMINOPHEN/CAFFEINE 1 TAB EACH ONE ×2 (00:06→06:37)
[2017-10-08] MEDS ORDERED: BUTALB/ACETAMINOPHEN/CAFFEINE 1 TAB EACH PO ONE (00:07)
--- NOTE | 2017-10-08 01:35 | Admission Physical ---
Datetime Report Generated by CPN: 10/08/2017 01:34 CURRENT ADMISSION Chief Complaint: Signs/Symptoms Gestational HTN Admit Impression : Term, Intrauterine ; No Active Labor; Intact Membranes Admit Plan: Admit to Unit; Observation/Evaluation ALLERGIES Medication Allergies: No Medication Allergies: No Known Allergies (10/07/2017) Latex: No Latex Allergies Food Allergies: none Environmental Allergies: none OBSTETRICAL HISTORY EDC: 10/18/2017 00:00 : 3 Para: 1 Term: 0 : 1 SAB: 0 IAB: 0 Ectopic: 0 Livin Cesareans: 1 VBACs: 0 Multiple Births: 0 Gestational Diabetes: No Rh Sensitization: No Incompetent Cervix: No DERREK: No Infertility: No ART Treatment: No Uterine Anomaly: No IUGR: No Hx Previous C/S: Yes Macrosomia: No Hx Loss/Stillborn: No PIH: No Hx : No Placenta Previa/Abruption: No Depression/PP Depression: Yes PTL/PROM: No Post Hemorrhage: Yes Current Procedures: Ultrasound; NST Obstetrical History Comments: g1- 35 weeks 14 oz female , pre-e, hemmorrhage (pitocin, methergine, hemabate, cytotec, bakri) G2- current - baby for adoption SEE RECORDS Alcohol: No Marijuana : No Cocaine: No Other Illicit Drugs: No Cigarettes: Never Smoker. 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 Heart Disease: No Hosp/Surgery: Yes Autoimmune Disorder: No Anesthetic Complications: No Kidney Disease: Yes Abnormal Pap Smear: No Neuro/Epilepsy: No Psychiatric Disorders: No Other Medical Diseases: No Hepatitis/Liver Disease: No Significant Family History: No Varicosities/Phlebitis: No Trauma/Violence : No Thyroid Dysfunction: No Medical History Comments: previous (09/2014), UTI, PP Depression, exploratory lap, wisdom teeth INFECTIOUS HISTORY Gonorrhea: No Genital Herpes: No Chlamydia: Yes Tuberculosis: No Syphilis: No Hepatitis: No HIV/AIDS Exposure: No Rash or Viral Illness: No HPV: No Infectious History Comments: chlamydia- 2014 PHYSICAL EXAM General: Normal HEENT: Normal Neurologic: Normal Thyroid: Deferred Heart: Normal Lungs: Normal Breast: Deferred Back: Normal Abdomen: Normal Genitourinary Exam: Normal Extremities: Normal DTRs: Normal Pelvic Type: Adequate Vital Signs: Reviewed VAGINAL EXAM Dilatation: 1 Effacement: 25 Station: -2 Contraction Comments: irreg [facility]ES Membranes: Intact FETUS A EGA: 38.4 Monitoring: External US FHR- Baseline: 145 Variability: Moderate 6-25bpm Accelerations: 15X15 Decelerations: None FHR Category: Category I Presentation: Vertex Admit Comment: 22yo at 38+4ega presents for noted increased BPs at home while checking them. She had a DENTON and was given fioricet which has improved DENTON. high mild range BPs. No severe range BPs. Pt initially refused admission and was going to leave. After prolonged discussion with patient regarding her history and current BPs she agreed to stay but does not want to proceed with anything until she can arrange childcare and have someone here with her. SHe is planning to give up baby for adoption and adoptive parent live in [place]. Of note she has a h/o C/S with 1st due to NRFHTs and then had a PPH with methergine, hemabate, Pitocin, Cytotec. She initially wanted a TOLAC but now is strongly considering Repeat C/S. D/w patient at the very least need to admit for BPs serial and for repeat labs in 6 hours with collection of 24 hour protein. However, would likely need delivery in the next 24 to 48 hours. Will make NPO. Patient is going to get her support here. Reviewed with patient that if severe range BPs or symptoms return would need to deliver sooner. T_C with hold due to h/o severe PPH. Due to this history would agree that repeat c/s would be the best. GBS negative. Admit for serial BPs and likely delivery in next 24 hrs. Dx currently is GHTN but suspect she is developing PreE. Labs normal at this time. PLANS FOR LABOR AND DELIVERY Labor and Delivery: None Pain Management: Spinal Feeding Preference: Formula Circumcision: N/A INFORMED CONSENT Informed Consent Obtained: Section Delivery; Risks, Benefits and Alternatives Discussed Signature: with User ID: [email or web address]
[2017-10-08] MEDS ORDERED: RINGERS SOLUTION,LACTATED 1,000 ML IV ONE (01:36)
[2017-10-08] MEDS ORDERED: DEXTROSE 40% GEL 15 GM TUBE PO PRN ×2 (01:39)
[2017-10-08] MEDS ORDERED: DEXTROSE 50%-WATER 25 GM/50 ML DISP.SYRIN IV PRN ×2 (01:39)
[2017-10-08] MEDS ORDERED: GLUCAGON,HUMAN RECOMB 1 MG INJ SUBCUT PRN (01:39)
[2017-10-08 05:59] LABS: ABSOLUTE EOSINOPHILS # (AUTO) 0.1 10^3/uL (0.0-0.6); ABSOLUTE LYMPHOCYTES (AUTO) 2.1 10^3/uL (0.5-4.7); ABSOLUTE MONOCYTES (AUTO) 0.6 10^3/uL (0.1-1.4); ABSOLUTE NEUT (AUTO) 5.6 10^3/uL (1.7-8.2); BASOPHILS % (AUTO) 0.2 % (0-2); EOSINOPHILS % (AUTO) 1.7 % (0-6); HEMATOCRIT 34.9 % (36.0-47.0); HEMOGLOBIN 11.8 g/dL (12.0-15.5); LYMPHOCYTES % (AUTO) 24.8 % (13-45); MEAN CORPUSCULAR HEMOGLOBIN 28.5 pg (27.0-33.4); MEAN CORPUSCULAR VOLUME 84 fl (80-97); MONOCYTES % (AUTO) 6.6 % (3-13); PLATELET COUNT 188 10^3/uL (150-450); RED BLOOD COUNT 4.15 10^6/uL (3.72-5.28); RED CELL DISTRIBUTION WIDTH 14.1 % (11.5-14.0); SEGMENTED NEUTROPHILS % (AUTO) 66.7 % (42-78); TOTAL CELLS COUNTED % (AUTO) 100 %; WHITE BLOOD COUNT 8.4 10^3/uL (4.0-10.5)
[2017-10-08 06:22] LABS: ALANINE AMINOTRANSFERASE 20 U/L (9-52); ALBUMIN 3.3 g/dL (3.5-5.0); ALKALINE PHOSPHATASE 134 U/L (38-126); ANION GAP 14 (5-19); ASPARTATE AMINO TRANSFERASE 10 U/L (14-36); BILIRUBIN,DIRECT 0.2 mg/dL (0.0-0.4); BILIRUBIN,TOTAL 0.5 mg/dL (0.2-1.3); BLOOD UREA NITROGEN 7 mg/dL (7-20); CALCIUM 9.3 mg/dL (8.4-10.2); CARBON DIOXIDE 18 mmol/L (22-30); CHLORIDE 108 mmol/L (98-107); GLUCOSE 77 mg/dL (75-110); POTASSIUM 3.5 mmol/L (3.6-5.0); SODIUM 139.8 mmol/L (137-145); TOTAL PROTEIN 6.3 g/dL (6.3-8.2); URIC ACID 3.9 mg/dL (2.5-6.2)
[2017-10-08] MEDS: RINGERS SOLUTION,LACTATED 1,000 ML IV PRN ×2 (06:38→18:06)
[2017-10-08] MEDS: NIFEDIPINE 30 MG TAB.ER.24 PO SCH ×2 (10:05→22:02)
[2017-10-09 00:16] LABS: URINE PROTEIN 18.5 mg/dL (<12)
[2017-10-09 00:18] LABS: 24 HOUR URINE PROTEIN RESULT 433 mg/day (42-225)
[2017-10-09] MEDS: RINGERS SOLUTION,LACTATED 1,000 ML IV PRN (07:17)
[2017-10-09] MEDS ORDERED: CEFAZOLIN 2 GM/D5W RTU 2 GM/50 ML RTUPB IV ONE (09:43)
[2017-10-09] MEDS ORDERED: CITRIC ACID/SODIUM CITRATE ORAL SOLN 15 ML UDCUP ONE (09:43)
[2017-10-09] MEDS ORDERED: LIDOCAINE 2% INJ-PF (20 MG/ML) 10 ML AMPUL ONE ×2 (09:43→11:58)
[2017-10-09] MEDS ORDERED: DEXAMETHASONE SOD PHOSPHATE INJ 4 MG/1 ML VIAL ONE (10:06)
[2017-10-09] MEDS ORDERED: ONDANSETRON HCL INJ/PF 4 MG/2 ML SDV ONE (10:06)
[2017-10-09] MEDS ORDERED: PROPOFOL INJ 200 MG/20 ML VIAL IV ONE (11:26)
[2017-10-09] MEDS ORDERED: MIDAZOLAM 2 MG/2 ML INJ ONE (11:26)
[2017-10-09] MEDS ORDERED: EPHEDRINE SULFATE INJ 50 MG/1 ML AMPULE ONE ×2 (11:26→11:58)
[2017-10-09] MEDS ORDERED: FENTANYL CITRATE INJ/PF 250 MCG/5 ML AMPULE ONE (11:27)
[2017-10-09] MEDS ORDERED: OXYTOCIN 10 UNIT/ML VIAL ONE ×2 (11:28→11:31)
[2017-10-09] MEDS ORDERED: KETAMINE HCL INJ 500 MG/10 ML VIAL ONE (12:05)
[2017-10-09] MEDS ORDERED: PROMETHAZINE HCL INJ 25 MG/1 ML VIAL ONE (12:11)
--- NOTE | 2017-10-09 13:08 | Operative Report ---
Operative Report DATE OF SURGERY: 10/09/17 PREOPERATIVE DIAGNOSIS: Patient for repeat with mild preeclampsia POSTOPERATIVE DIAGNOSIS: Same OPERATION: Repeat via low transverse uterine incision SURGEON: LEONIDAS JEFFRIES ANESTHESIA: Epidural TISSUE REMOVED OR ALTERED: Placenta COMPLICATIONS: None ESTIMATED BLOOD LOSS: 250 cc INTRAOPERATIVE FINDINGS: Viable female normal uterus tubes and ovaries PROCEDURE: Patient was taken to the OR and placed in supine position after her spinal anesthesia. She is prepared and draped in sterile fashion. Betancourt was placed for drainage of the bladder. Low transverse incision was made and carried down the level of the fascia. The fascial incision was made with knife and extended bilaterally with curved Sheikh scissors. The fascia was off the rectus muscles using sharp and blunt dissection. The rectus muscles are in the midline. The peritoneum was entered without incident. Bladder blade was placed in uterine segment was identified. A low transverse incision was made creating a bladder flap. Bladder blade was placed low transverse uterine incision was made with the csafe knife and extended with fingertips. The baby was delivered with some fundal pressure. Mouth and nose were suctioned free. The cord is doubly clamped and cut. Baby is passed off to the rand maker in attendance. The placenta was manually extracted with trailing membranes. The uterus was externalized wrapped in a moist lap sponge. Uterine contents wiped free. Uterus was closed with a running locking layer of 0 chromic suture using the second layer to imbricate the first completing a double layer closure of the uterus. The serosa was closed with a running 2-0 chromic stitch. The pelvis was irrigated and suctioned free of fluid the uterus was replaced in the abdomen. The abdominal wall peritoneum was closed with running 2-0 chromic stitch. Fascia was closed with a running 0 Vicryl in 2 segments. Sommer's layer was brought together with 0 plain gut stitch and the skin was closed with running subcuticular 4-0 undyed Vicryl stitch. The wound was dressed mother and baby did well.
[2017-10-09] MEDS ORDERED: ACETAMINOPHEN 1,000 MG/100 ML RTUPB IV ONE (13:22)
[2017-10-09] MEDS ORDERED: OXYTOCIN/NORMAL SALINE 20 UNIT/1,000 ML RTUINJ ONE (13:47)
[2017-10-09] MEDS ORDERED: MORPHINE SULFATE 10 MG/ML INJ ONE (14:01)
--- NOTE | 2017-10-09 14:12 | Warning Signs in Babies ---
VOD Warning Signs Datetime Report Generated by [facility]: 10/09/2017 14:12 VOD#608 -Warning Signs in Babies: Needs to be viewed. (07/30/2017 00:06:Sarahy Bourne RN)
--- NOTE | 2017-10-09 14:53 | Delivery Summary ---
Del Sum A-C Datetime Report Generated by CPN: 10/09/2017 14:52 DELIVERY PERSONNEL DELIVERY PERSONNEL: [id number] Delivery Doctor:: Letty Rodas MD Anesthesiologist:: Lupillo Michele MD CO FOUNDER & CEO:: Cordelia Mariee CRNA Labor and Delivery Nurse:: Sarahy Bourne RNbrick tester Nurse:: Cele Egan RN Production Analyst:: David Munoz RN Engine Room Operator:: Dr. Fidencio Rodríguez Nursery Nurse:: Meka Nathan RN Senior Manager/DRAPERY AND UPHOLSTERY MEASURER: ST Augusto Senior Manager/DRAPERY AND UPHOLSTERY MEASURER: Natalie Rubin, POTATO GRADER MATERNAL INFORMATION Delivery Anesthesia: Epidural Medications After Delivery: Pitocin Drip 20 Units/1000ml NSS Meds After Delivery Comment: Pitocin 20 units Maternal Complications: Other Complication Details: Pre-E LABOR SUMMARY EDC: 10/18/2017 00:00 No. Babies in Womb: 1 LABOR INFORMATION Group B Beta Strep: Negative STAGES OF LABOR Stage 3 hr: 0 Stage 3 min: 1 VAGINAL DELIVERY Episiotomy: None Laceration #1: None Laceration Extension #1: N/A Laceration Repair: Not Applicable Sponge Count Correct: N/A CSECTION DELIVERY Primary Indication: Repeat Elective CSection Urgency: Non-Scheduled CSection Incidence: Repeat Labor: No Labor Elective: Elective CSection Incision: Lower Uterine Transverse BABY A INFORMATION Infant Delivery Date/Time: 10/09/2017 12:35 Method of Delivery: Born in Route : No : N/A Forceps: N/A Vacuum Extraction: N/A Shoulder Dystocia : No PRESENTATION/POSITION BABY A Presentation: Cephalic Cephalic Presentation: Vertex Vertex Position: Left Occipital Anterior PLACENTA INFORMATION BABY A Placenta Delivery Time : 10/09/2017 12:36 Placenta Method of Delivery: Manual Removal Placenta Status: Delivered SCORES BABY A Heart Rate 1 min: >100 bpm Resp Effort 1 min: Good Cry Reflex Irritability 1 min: Cough or Sneeze or Pulls Away Muscle Tone 1 min: Active Motion Color 1 min: Body [place], Extremities Blue Resuscitation Effort 1 min: Tactile Stimulation SCORE 1 MIN: 9 Heart Rate 5 min: >100 bpm Resp Effort 5 min: Good Cry Reflex Irritability 5 min: Cough or Sneeze or Pulls Away Muscle Tone 5 min: Active Motion Color 5 min: Body [place], Extremities Blue SCORE 5 MIN: 9 INFORMATION BABY A Gestational Age at Delivery: 38.5 Gestational Status: Early Term- 37- 38.6 Weeks Outcome : Liveborn Condition : Stable Sex: Female IDENTIFICATION BABY A Infant Verification Date/Time: 10/09/2017 12:29 ID Band Number: [id number] Mother's Name Verified: Yes Infant RN Verifying : Shabbir Pimentelrge RN Additional Verifying Personnel: Ezequiel Egan RN WEIGHT/LENGTH BABY A Birthweight (gm): 2890 Weight (lb): 6 Infant Weight (oz): 6 Length (in): 20.00 Infant Length (cm): 50.80 CORD INFORMATION BABY A No. Cord Vessels: 3 Nuchal Cord : N/A Cord Blood Taken: Yes-For Storage (Mom's Blood type +) ASSESSMENT BABY A Skin to Skin: No
[2017-10-09] MEDS: NIFEDIPINE 30 MG TAB.ER.24 PO SCH ×2 (15:58→21:52)
[2017-10-09] MEDS ORDERED: OXYTOCIN/NORMAL SALINE 20 UNIT/1,000 ML RTUINJ INJ PRN (15:59)
[2017-10-09] MEDS ORDERED: MEASLES,MUMPS&RUBELLA VACC/PF 0.5 ML VIAL SUBCUT PRN (16:00)
[2017-10-09] MEDS ORDERED: RINGERS SOLUTION,LACTATED 1,000 ML IV SCH (16:00)
[2017-10-09] MEDS ORDERED: HYDROMORPHONE HCL INJ/PF 2 MG/ML AMPULE IV PRN (16:00)
[2017-10-09] MEDS ORDERED: PROMETHAZINE HCL INJ 25 MG/1 ML VIAL IM PRN (16:00)
[2017-10-09] MEDS ORDERED: SIMETHICONE 80 MG TAB.CHEW PO PRN (16:00)
[2017-10-09] MEDS ORDERED: OXYCODONE-ACETAMINOPHEN 5-325 MG TABLET PO PRN (16:00)
[2017-10-09] MEDS ORDERED: ACETAMINOPHEN 325 MG TABLET PO PRN (16:00)
[2017-10-09] MEDS ORDERED: DIPH/PERTUSS(ACELL)/TETANUS VAC/PF 0.5 ML SYR (>=10YO) IM PRN (16:00)
[2017-10-09] MEDS ORDERED: HYDROMORPHONE HCL INJ/PF 2 MG/ML AMPULE ONE (17:00)
[2017-10-09] MEDS: DOCUSATE SODIUM 100 MG CAPSULE PO SCH (17:51)
[2017-10-09] MEDS: IBUPROFEN 800 MG TABLET PO SCH ×2 (17:52→23:21)
[2017-10-09] MEDS ORDERED: IBUPROFEN 800 MG TABLET ONE (17:53)
[2017-10-09] MEDS ORDERED: MISOPROSTOL 0.2 MG TABLET PR ONE (18:00)
[2017-10-09] MEDS: OXYCODONE-ACETAMINOPHEN 5-325 MG TABLET PO PRN (20:32)
[2017-10-10] MEDS: OXYCODONE-ACETAMINOPHEN 5-325 MG TABLET PO PRN ×2 (05:40→20:48)
[2017-10-10] MEDS: IBUPROFEN 800 MG TABLET PO SCH ×4 (05:40→23:23)
[2017-10-10 08:09] LABS: HEMATOCRIT 29.3 % (36.0-47.0); HEMOGLOBIN 10.2 g/dL (12.0-15.5); MEAN CORPUSCULAR HEMOGLOBIN 29.2 pg (27.0-33.4); MEAN CORPUSCULAR HGB CONC 34.8 g/dL (32.0-36.0); MEAN CORPUSCULAR VOLUME 84 fl (80-97); PLATELET COUNT 173 10^3/uL (150-450); RED CELL DISTRIBUTION WIDTH 14.6 % (11.5-14.0); WHITE BLOOD COUNT 9.7 10^3/uL (4.0-10.5)
[2017-10-10] MEDS: DOCUSATE SODIUM 100 MG CAPSULE PO SCH ×2 (09:40→18:14)
[2017-10-10] MEDS: PRENATAL VITAMIN W DHA CAPSULE PO SCH (09:40)
[2017-10-10] MEDS: NIFEDIPINE 30 MG TAB.ER.24 PO SCH ×2 (09:41→21:22)
--- NOTE | 2017-10-10 16:36 | PDOC PROGRESS REPORT ---
Subjective-OB Progress Note for:: 10/10/17 Subjective: reports bleeding slowing, pain managed with current meds, denies needs, states she is passing gas Physical Exam (OB) Vital Signs: Temp Pulse Resp BP Pulse Ox 98 F 81 16 130/70 H 97 10/10/17 15:19 10/10/17 15:19 10/10/17 15:19 10/10/17 15:19 10/10/17 15:19 Intake & Output 10/09/17 10/10/17 10/11/17 06:59 06:59 06:59 Intake Total 1999 500 Output Total 2300 Balance 2000 -1800 - Dressing Removed: No - opsite Incision: Draining, Well Approximated - Abdomen Description: Tender, Soft, Round Hernia Present: No Fundal Description: Firm, Midline Fundal Height: u/u - u/2 - Extremities Lower extremities: Garcia's sign - neg Calf: Normal, Nontender Objective-Diagnostic Laboratory: 10/10/17 06:47 10/08/17 05:35 10/10/17 06:47 WBC 9.7 RBC 3.50 L Hgb 10.2 L Hct 29.3 L MCV 84 MCH 29.2 MCHC 34.8 RDW 14.6 H Plt Count 173 Assessment and Plan(PN) - Assessment and Plan (1) delivery delivered Is this a current diagnosis for this admission?: Yes (2) Gestational hypertension Is this a current diagnosis for this admission?: Yes (3) with adoption planned, antepartum Is this a current diagnosis for this admission?: Yes - Time Spent with Patient Time with patient: Less than 15 minutes - Disposition Anticipated Discharge: Home Within: within 24 hours
[2017-10-11] MEDS: IBUPROFEN 800 MG TABLET PO SCH ×2 (06:27→12:38)
[2017-10-11] MEDS: DOCUSATE SODIUM 100 MG CAPSULE PO SCH (10:28)
[2017-10-11] MEDS: NIFEDIPINE 30 MG TAB.ER.24 PO SCH (10:28)
[2017-10-11] MEDS: PRENATAL VITAMIN W DHA CAPSULE PO SCH (10:28)
--- NOTE | 2017-10-11 10:44 | PDOC DISCHARGE SUMMARY ---
Final Diagnosis Discharge Date: 10/11/17 - Final Diagnosis (1) delivery delivered Is this a current diagnosis for this admission?: Yes (2) Gestational hypertension Is this a current diagnosis for this admission?: Yes (3) with adoption planned, antepartum Is this a current diagnosis for this admission?: Yes Discharge Data - Discharge Medication Prescriptions: Ibuprofen [Motrin 800 mg Tablet] 800 mg PO Q6 #60 tablet Nifedipine [Procardia XL 30 mg Tablet] 30 mg PO Q12 #60 tab.er.24 Oxycodone HCl/Acetaminophen [Percocet 5-325 mg Tablet] 1 tab PO Q4HP PRN #30 tablet PRN Reason: Home Medications: Vit/Iron Fum/Folic AC [ Tablet] 1 each PO DAILY 03/06/17 Ibuprofen [Motrin 800 mg Tablet] 800 mg PO Q6 #60 tablet 10/11/17 Nifedipine [Procardia XL 30 mg Tablet] 30 mg PO Q12 #60 tab.er.24 10/11/17 Oxycodone HCl/Acetaminophen [Percocet 5-325 mg Tablet] 1 tab PO Q4HP PRN #30 tablet 10/11/17 Procedures: NST Intrapartum Procedure(s): : Low Cervical, Transverse - Diagnosis Test Laboratory: Temp Pulse Resp BP Pulse Ox 98.0 F 94 16 135/86 H 97 10/11/17 07:39 10/11/17 07:39 10/11/17 07:39 10/11/17 07:39 10/11/17 07:39 10/07/17 10/07/17 10/08/17 20:33 23:10 05:35 RBC 4.40 4.15 Hgb 12.4 11.8 L Hct 36.6 34.9 L Urine Opiates Screen NEGATIVE 10/10/17 06:47 RBC 3.50 L Hgb 10.2 L Hct 29.3 L Urine Opiates Screen - Discharge information/Instructions Discharge Activity: Balance Activity w/Rest, No Lifting/Push/Pulling, Pelvic Rest, No tub bath Discharge Diet: Regular Disposition: HOME, SELF-CARE Follow up with: [facility] in: 1, Weeks
[2017-10-11 11:17] VITALS: BP 130/70
== END 2017-10-11 15:00 | disposition home or self-care (01) | DRG 766 ==
LOC: LC 22:25 → LR 10-08 01:14 → OBSVTOIN 10-08 01:14 → LR 10-09 12:15 → 2S 10-09 15:35
PROVIDERS: ADMIT Obstetrics & Gynecology; ATTEND Obstetrics & Gynecology
PROC: 10D00Z1 Extraction of Products of Conception, Low, Open Approach (ICD-10-PCS; principal; 2017-10-09)
PROC: 4A1HXCZ Monitoring of Products of Conception, Cardiac Rate, External Approach (ICD-10-PCS; 2017-10-09)
DX: O13.4 Gestational [pregnancy-induced] hypertension without significant proteinuria, complicating childbirth (principal); O34.211 Maternal care for low transverse scar from previous cesarean delivery; O99.344 Other mental disorders complicating childbirth; F32.9 Major depressive disorder, single episode, unspecified; Z3A.38 38 weeks gestation of pregnancy; Z37.0 Single live birth
CPT/HCPCS: 1961; 36415; 80053; 80307; 81001; 82570; 83615; 84156; 84550; 85025; 85027; 86592; 86850; 86900; 86901; 86920; 94799; G0378; G0379; J0131; J0690; J1100; J1170; J2250; J2270; J2405; J2550; J2590; J2704; J3010; J3490

== ENCOUNTER 2018-08-10 13:20 | Emergency (ER) | payer MEDICAID ==
[2018-08-10] MEDS ORDERED: NORMAL SALINE 1000 ML 1,000 ML IV ONE (16:08)
[2018-08-10] MEDS ORDERED: MECLIZINE HCL 25 MG TABLET PO ONE (16:08)
[2018-08-10] MEDS ORDERED: ONDANSETRON HCL INJ/PF 4 MG/2 ML SDV IV ONE (16:08)
--- NOTE | 2018-08-10 16:09 | ER Document Report ---
HPI - HPI Patient complains to provider of: Sunburn Time Seen by Provider: 08/10/18 15:50 Quality of pain: Burning Pain Level: 4 Context: Patient presents reporting sunburn to the shoulders and neck area that occurred 3 days ago. Patient states she is only been out in the sun for about 30 minutes. Patient states that due to the sunburn she has had lightheadedness and dizziness since then. Patient denies any nausea or vomiting. Patient denies any fever. Patient denies any headache. Associated Symptoms: Other - Dizziness, sunburn. denies: Chest pain, Nonproductive cough, Productive cough, Headache, Nausea, Vomiting Exacerbated by: Denies Relieved by: Denies Similar symptoms previously: Yes Recently seen / treated by doctor: No - ROS ROS below otherwise negative: Yes Systems Reviewed and Negative: Yes All other systems reviewed and negative - CONSTITUTIONAL Constitutional: REPORTS: Chills. DENIES: Fever - EENT EENT: DENIES: Sore Throat - NEURO Neurology: REPORTS: Dizzinesss / Vertigo. 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 Lives with: Family Family History: Reviewed & Not Pertinent Patient has suicidal ideation: No Patient has homicidal ideation: No Pulmonary Medical History: Reports: Hx Asthma Neurological Medical History: Reports: Hx Migraine Renal/ Medical History: Denies: Hx Peritoneal Dialysis Psychiatric Medical History: Reports: Hx Depression - post Past Surgical History: Reports: Hx Section - x2, Hx Oral Surgery - [place] teeth - Immunizations Hx Diphtheria, Pertussis, Tetanus Vaccination: Yes Vertical Provider Document - CONSTITUTIONAL Agree With Documented VS: Yes Exam Limitations: No Limitations General Appearance: WD/WN, No Apparent Distress - INFECTION CONTROL TRAVEL OUTSIDE OF THE [place] IN LAST 30 DAYS: No - HEENT HEENT: Atraumatic, Normal ENT Exam, Normocephalic - NECK Neck: Normal Inspection, Supple. negative: Lymphadenopathy-Left, Lymphadenopathy-Right - RESPIRATORY Respiratory: Breath Sounds Normal, No Respiratory Distress - CARDIOVASCULAR Cardiovascular: Regular Rate, Regular Rhythm, No Murmur - BACK Back: Normal Inspection - MUSCULOSKELETAL/EXTREMETIES Musculoskeletal/Extremeties: MALORIE HUBER - NEURO Level of Consciousness: Awake, Alert, Appropriate Motor/Sensory: No Motor Deficit - DERM Integumentary: Warm, Dry, Rash - Sunburn to shoulders and upper back area Course - Re-evaluation Re-evalutation: 08/10/18 17:44 Patient reports that dizziness symptoms have improved. Patient nontoxic in appearance. Patient does have some leukocyte esterase noted on urinalysis although urine was not a very good clean-catch specimen. Culture will be obtained at this time as patient denies any urinary symptoms. Patient encouraged to wear sunblock or protective clothing when outside. - Laboratory Result Diagrams: 08/10/18 16:30 08/10/18 16:30 Laboratory results interpreted by me: 08/10/18 17:44 Labs- Entire Visit 08/10/18 08/10/18 08/10/18 16:30 16:30 16:30 WBC 7.6 RBC 5.09 Hgb 14.1 Hct 41.6 MCV 82 MCH 27.7 MCHC 33.9 RDW 13.7 Plt Count 226 Seg Neutrophils % 52.9 Lymphocytes % 34.6 Monocytes % 7.1 Eosinophils % 4.6 Basophils % 0.8 Absolute Neutrophils 4.0 Absolute Lymphocytes 2.6 Absolute Monocytes 0.5 Absolute Eosinophils 0.3 Absolute Basophils 0.1 Sodium 142.1 Potassium 4.0 Chloride 107 Carbon Dioxide 22 Anion Gap 13 BUN 11 Creatinine 0.62 Est GFR ( Amer) > 60 Est GFR (Non-Af Amer) > 60 Glucose 88 Calcium 10.3 H Serum HCG, Qual NEGATIVE Urine Color Urine Appearance Urine pH Ur Specific [place] Urine Protein Urine Glucose (UA) Urine Ketones Urine Blood Urine Nitrite Urine Bilirubin Urine Urobilinogen Ur Leukocyte Esterase Urine WBC (Auto) Urine RBC (Auto) Urine Bacteria (Auto) Squamous Epi Cells Auto Amorphous Sediment Auto Urine Mucus (Auto) Urine Ascorbic Acid 08/10/18 16:30 WBC RBC Hgb Hct MCV MCH MCHC RDW Plt Count Seg Neutrophils % Lymphocytes % Monocytes % Eosinophils % Basophils % Absolute Neutrophils Absolute Lymphocytes Absolute Monocytes Absolute Eosinophils Absolute Basophils Sodium Potassium Chloride Carbon Dioxide Anion Gap BUN Creatinine Est GFR ( Amer) Est GFR (Non-Af Amer) Glucose Calcium Serum HCG, Qual Urine Color YELLOW Urine Appearance CLOUDY Urine pH 6.0 Ur Specific [place] 1.019 Urine Protein NEGATIVE Urine Glucose (UA) NEGATIVE Urine Ketones NEGATIVE Urine Blood NEGATIVE Urine Nitrite NEGATIVE Urine Bilirubin NEGATIVE Urine Urobilinogen NEGATIVE Ur Leukocyte Esterase LARGE H Urine WBC (Auto) 16 Urine RBC (Auto) 1 Urine Bacteria (Auto) 1+ Squamous Epi Cells Auto 10 Amorphous Sediment Auto TRACE Urine Mucus (Auto) OCC Urine Ascorbic Acid NEGATIVE - EKG Interpretation by Me EKG shows normal: Sinus rhythm Rate: Normal Rhythm: NSR Additional EKG results interpreted by me: 08/10/18 17:44 QTC 443, ST elevation Discharge - Discharge Clinical Impression: Burn from the sun, Dizziness Condition: Stable Disposition: HOME, SELF-CARE Instructions: Anti-Inflammatory Medication ([facility]), Dizziness ([facility]), Intravenous (IV) Fluids ([facility]), Meclizine ([facility]) Additional Instructions: Return immediately for any new or worsening symptoms Followup with your primary care provider, call tomorrow to make a followup appointment Wear sunblock or protective clothing when out in the sun Urine culture is pending, will call if you need any different treatment Prescriptions: Meclizine HCl [Antivert 25 mg Tablet] 25 mg PO ASDIR PRN #12 tablet PRN Reason: Naproxen [Naprosyn 250 Nmg Tablet] 1 tab PO BID #14 tablet Forms: Return to Work Referrals: LIZZ TURNER FNP-C [Primary Care Provider] - Follow up as needed
[2018-08-10] MEDS ORDERED: KETOROLAC TROMETHAMINE INJ/PF 30 MG/1 ML SDV IV ONE (16:11)
[2018-08-10 16:46] LABS: ABSOLUTE BASOPHILS # (AUTO) 0.1 10^3/uL (0.0-0.2); ABSOLUTE EOSINOPHILS # (AUTO) 0.3 10^3/uL (0.0-0.6); ABSOLUTE LYMPHOCYTES (AUTO) 2.6 10^3/uL (0.5-4.7); ABSOLUTE MONOCYTES (AUTO) 0.5 10^3/uL (0.1-1.4); BASOPHILS % (AUTO) 0.8 % (0-2); EOSINOPHILS % (AUTO) 4.6 % (0-6); HEMATOCRIT 41.6 % (36.0-47.0); HEMOGLOBIN 14.1 g/dL (12.0-15.5); LYMPHOCYTES % (AUTO) 34.6 % (13-45); MEAN CORPUSCULAR HEMOGLOBIN 27.7 pg (27.0-33.4); MEAN CORPUSCULAR HGB CONC 33.9 g/dL (32.0-36.0); MEAN CORPUSCULAR VOLUME 82 fl (80-97); MONOCYTES % (AUTO) 7.1 % (3-13); PLATELET COUNT 226 10^3/uL (150-450); RED BLOOD COUNT 5.09 10^6/uL (3.72-5.28); RED CELL DISTRIBUTION WIDTH 13.7 % (11.5-14.0); SEGMENTED NEUTROPHILS % (AUTO) 52.9 % (42-78); TOTAL CELLS COUNTED % (AUTO) 100 %; WHITE BLOOD COUNT 7.6 10^3/uL (4.0-10.5)
[2018-08-10 16:53] LABS: AMORPHOUS SEDIMENT,URINE TRACE /HPF; APPEARANCE,URINE CLOUDY; BILIRUBIN,URINE NEGATIVE (NEGATIVE); COLOR,URINE YELLOW; GLUCOSE, URINE NEGATIVE (NEGATIVE); KETONES,URINE NEGATIVE (NEGATIVE); LEUKOCYTE ESTERASE,URINE LARGE (NEGATIVE); NITRITE,URINE NEGATIVE (NEGATIVE); PROTEIN,URINE NEGATIVE (NEGATIVE); URINE SPECIFIC GRAVITY 1.019; UROBILINOGEN,URINE NEGATIVE mg/dL (<2.0)
[2018-08-10 17:09] LABS: ANION GAP 13 (5-19); BLOOD UREA NITROGEN 11 mg/dL (7-20); CALCIUM 10.3 mg/dL (8.4-10.2); CARBON DIOXIDE 22 mmol/L (22-30); CHLORIDE 107 mmol/L (98-107); GLUCOSE 88 mg/dL (75-110); SODIUM 142.1 mmol/L (137-145)
[2018-08-10 17:37] VITALS: BP 117/90
--- NOTE | 2018-08-10 22:54 | EKG REPORT ---
SEVERITY:- NORMAL ECG - SINUS RHYTHM : Confirmed by: Gretchen Ann 10-Aug-2018 22:53:52
== END 2018-08-10 18:00 | disposition home or self-care (01) ==
LOC: ER 13:20
DX: L59.9 Disorder of the skin and subcutaneous tissue related to radiation, unspecified (principal); R42 Dizziness and giddiness; J45.909 Unspecified asthma, uncomplicated
CPT/HCPCS: 93005; 99283; 96360; 36415; 87086; 84703; 85025; 80048; 81001; 93010; J1885; J2405; J7030

== ENCOUNTER 2020-01-31 22:47 | Emergency (ER) | payer MEDICAID ==
[2020-02-01] MEDS ORDERED: METHYLPREDNISOLONE INJ 125 MG/2 ML SDV IV ONE (07:09)
[2020-02-01] MEDS ORDERED: PROMETHAZINE HCL INJ 25 MG/1 ML VIAL IV ONE (07:09)
[2020-02-01] MEDS ORDERED: KETOROLAC TROMETHAMINE INJ/PF 30 MG/1 ML SDV IV ONE (07:10)
--- NOTE | 2020-02-01 07:16 | ER Document Report ---
ED Headache - General Chief Complaint: Headache Stated Complaint: HEADACHE Time Seen by Provider: 02/01/20 06:38 Primary Care Provider: [facility] [Primary Care Provider] - Follow up as needed Notes: HPI: 24-year-old female who states twice monthly headaches for around 5 years. She is never had any imaging. She denies any double or blurry vision, nausea without vomiting, no head trauma, fevers, weakness or numbness. Mother has a history of migraines. No missed menstrual periods. ROS: See HPI All other review of systems reviewed and otherwise negative Reviewed vital signs and nursing note as charted by RN. PHYSICAL EXAM: CONSTITUTIONAL: Alert and oriented and responds appropriately to questions. Well-appearing; well-nourished HEAD: Normocephalic; atraumatic EYES: PERRL; full extraocular range of motion ENT: Normal nose; no rhinorrhea; moist mucous membranes; pharynx without lesions noted NECK: Supple without meningismus; non-tender; no cervical lymphadenopathy, no masses CARD: Regular rate and rhythm; no murmurs; symmetric distal pulses RESP: Normal chest excursion without splinting or tachypnea; breath sounds clear and equal bilaterally ABD/GI: Normal bowel sounds; non-distended; soft, non-tender BACK: The back appears normal and is non-tender to palpation EXT: Normal ROM in all joints; non-tender to palpation; no edema SKIN: No acute lesions noted NEURO: CN 2-12 intact; 5/5 bilateral upper and lower extremity strength with sensation intact to light touch PSYCH: The patient's mood and manner are appropriate. Grooming and personal hygiene are appropriate. TRAVEL OUTSIDE OF THE [place] IN LAST 30 DAYS: No - Related Data Allergies/Adverse Reactions: No Known Allergies Allergy (Verified 08/10/18 13:23) Past Medical History - Social History Smoking Status: Never Smoker Chew tobacco use (# tins/day): No Frequency of alcohol use: None Drug Abuse: None Family History: Reviewed & Not Pertinent Patient has homicidal ideation: No Pulmonary Medical History: Reports: Hx Asthma Neurological Medical History: Reports: Hx Migraine Renal/ Medical History: Denies: Hx Peritoneal Dialysis Psychiatric Medical History: Reports: Hx Depression - post Past Surgical History: Reports: Hx Section - x2, Hx Oral Surgery - [place] teeth - Immunizations Hx Diphtheria, Pertussis, Tetanus Vaccination: Yes Physical Exam - Vital signs Vitals: Temp Pulse Resp BP Pulse Ox 98.2 F 94 18 140/92 H 100 01/31/20 23:04 01/31/20 23:04 01/31/20 23:04 01/31/20 23:04 01/31/20 23:04 Course - Re-evaluation Re-evalutation: 02/01/20 07:16 Given the above history and physical with no previous imaging I will obtain a CT scan of the head as well as check intraocular pressure. I will provide appropriate medications. Patient states she has a ride home. She states she is not . 02/01/20 09:18 CT scan of the head as recorded. Still no focal logical deficits. Patient's headache is improved. 02/01/20 09:38 Normal Chele-Pen pressures. No change in exam. Patient will be discharged home with strict return precautions. - Vital Signs Vital signs: Temp Pulse Resp BP Pulse Ox 98.7 F 71 18 133/88 H 99 02/01/20 05:39 02/01/20 05:39 01/31/20 23:04 02/01/20 05:39 02/01/20 05:39 - Laboratory Results Critical Laboratory Results Reviewed: No Critical Results - Radiology Results Critical Radiology Results Reviewed: No Critical Results Discharge - Discharge Clinical Impression: Headache Qualifiers: Headache type: unspecified Headache chronicity pattern: unspecified pattern Intractability: not intractable Qualified Code(s): R51.9 - Headache, unspecified Condition: Good Disposition: HOME, SELF-CARE Additional Instructions: Come back immediately for any fevers, vomiting, double or blurry vision, weakness or numbness, or any other acute problems. Please follow-up with your primary care physician for possible outpatient neurology evaluation as discussed. Prescriptions: Promethazine HCl [Phenergan 25 mg Tablet] 25 mg PO Q6H PRN #15 tablet PRN Reason: Referrals: [facility] [Primary Care Provider] - Follow up as needed
--- NOTE | 2020-02-01 09:11 | RADIOLOGY REPORT (SQ) ---
EXAM DESCRIPTION: CT HEAD WITHOUT IMAGES COMPLETED DATE/TIME: 02/01/2020 8:46 am REASON FOR STUDY: headache; for years; no imaging COMPARISON: None. TECHNIQUE: Axial images acquired through the brain without intravenous contrast. Images reviewed wi th bone, brain and subdural windows. Additional sagittal and coronal reconstructions were generated. Images stored on PACS. All CT scanners at this facility use dose modulation, iterative reconstruction, and/or weight based d osing when appropriate to reduce radiation dose to as low as reasonably achievable (ALARA). [facility]: Dose Right [facility]: CareDose [facility]: Dose Right [facility]: Teradose 4D [facility]: [employer] RADIATION DOSE: CT Rad equipment meets quality standard of care and radiation dose reduction techniq ues were employed. CTDIvol: 53.2 mGy. DLP: 964 mGy-cm. mGy. LIMITATIONS: None. FINDINGS: VENTRICLES: Normal size and contour. CEREBRUM: No masses. No hemorrhage. No midline shift. No evidence for acute infarction. Normal gra y/white matter differentiation. No areas of low density in the white matter. CEREBELLUM: No masses. No hemorrhage. No alteration of density. No evidence for acute infarction. EXTRAAXIAL SPACES: No fluid collections. No masses. ORBITS AND GLOBE: No intra- or extraconal masses. Normal contour of globe without masses. CALVARIUM: No fracture. PARANASAL SINUSES: No fluid or mucosal thickening. SOFT TISSUES: No mass or hematoma. OTHER: No other significant finding. IMPRESSION: NORMAL BRAIN CT WITHOUT CONTRAST. EVIDENCE OF ACUTE STROKE: NO. COMMENT: Quality ID # [id number]: Final reports with documentation of one or more dose reduction techniques (e.g., Automated exposure control, adjustment of the mA and/or kV according to patient size, use of iterative reconstruction technique) TECHNICAL DOCUMENTATION: JOB ID: [id number] 2010 [employer]- All Rights Reserved Reading location - IP/workstation name: [email or web address]
[2020-02-01 10:21] VITALS: BP 118/49
== END 2020-02-01 10:25 | disposition home or self-care (01) ==
LOC: ER 22:47
DX: R51.9 Headache, unspecified (principal); J45.909 Unspecified asthma, uncomplicated; Z82.0 Family history of epilepsy and other diseases of the nervous system
CPT/HCPCS: 99285; 96374; 96375; 81025; 70450; J2930; J1885; J2550